=== PATIENT | male | born 1985 | race African-American/Black ===

== ENCOUNTER 2016-12-17 15:21 | Emergency (ER) | payer MEDICAID ==
[2016-12-17] MEDS ORDERED: CLINDAMYCIN 150 MG CAPSULE PO STA (16:31)
[2016-12-17] MEDS ORDERED: HYDROcod/ACETAM 5/325 MG TABLET PO STA (16:31)
[2016-12-17] MEDS ORDERED: HYDROcod/ACETAM 5/325 MG TABLET ONE (16:36)
[2016-12-17] MEDS ORDERED: CLINDAMYCIN 150 MG CAPSULE PO ONE (16:36)
== END 2016-12-17 16:49 | disposition home or self-care (01) ==
DX: K04.7 Periapical abscess without sinus (principal); F17.200 Nicotine dependence, unspecified, uncomplicated
CPT/HCPCS: 99283; A9270

== ENCOUNTER 2017-07-24 13:11 | Emergency (ER) | payer MEDICAID ==
[2017-07-24 13:21] VITALS: BP 142/77
--- NOTE | 2017-07-24 13:45 | ED Physician Documentation ---
PD HPI HEENT - Stated complaint Stated Complaint: TOOTH PX - Chief complaint Chief Complaint: Heent - History obtained from History obtained from: Patient - History of Present Illness Timing - onset: How many weeks ago (several) Timing - details: Waxing and waning Associated symptoms: No: Fever, Facial swelling, Headache Similar symptoms before: No diagnosis - Additional information Additional information: The patient is a 31-year-old male who presents with dental pain in a right upper molar. He has had pain in this tooth intermittently for the past several weeks, but it became worse this morning. He denies associated headache, earache , sore throat, or fever. He has a dental appointment scheduled for 3 weeks from now. Review of Systems Constitutional: denies: Fever Eyes: denies: Irritation Ears: denies: Ear pain Nose: denies: Congestion Throat: reports: Dental pain / toothache. denies: Sore throat Respiratory: denies: Dyspnea, Cough GI: denies: Abdominal Pain, Nausea, Vomiting : denies: Dysuria Skin: denies: Rash Musculoskeletal: denies: Neck pain Neurologic: denies: Headache PD PAST MEDICAL HISTORY - Past Medical History Past Medical History: No Cardiovascular: None Respiratory: None Neuro: None Endocrine/Autoimmune: None GI: None : None HEENT: Other Psych: None Musculoskeletal: None Derm: None - Past Surgical History Past Surgical History: Yes General: Cholecystectomy, Appendectomy Ortho: Other - Present Medications Home Medications: Ambulatory Orders Medication Instructions Recorded Confirmed HYDROcod/ACETAM 5/325 [[place] 5/325] 1 - 2 ea PO Q6H PRN #20 tablet 07/24/17 Penicillin V Potassium 500 mg PO QID #40 tablet 07/24/17 - Allergies Allergies/Adverse Reactions: Allergies Allergy/AdvReac Type Severity Reaction Status Date / Time naproxen Allergy Severe throat Verified 07/24/17 13:21 swelling ibuprofen Allergy Edema Verified 07/24/17 13:21 morphine AdvReac Nausea Verified 07/24/17 13:21 - Social History Does the pt smoke?: Yes Smoking Status: Current every day smoker Does the pt drink ETOH?: No Does the pt have substance abuse?: Yes Substance Use and Type: Marijuana - Immunizations Immunizations are current?: Yes - POLST Patient has POLST: No PD ED PE NORMAL - Vitals Vital signs reviewed: Yes (hypertensive) - General General: Alert and oriented X 3, Well developed/nourished - HEENT HEENT: Atraumatic, PERRL, EOMI, Ears normal, Pharynx benign, Other (There is tenderness to palpation of a right upper molar, third from the rear. There is no gingival swelling or erythema, and no facial swelling detected. Oropharynx is nonerythematous.) - Neck Neck: Supple, no meningeal sign, No adenopathy - Cardiac Cardiac: RRR - Respiratory Respiratory: No respiratory distress, Clear bilaterally - Abdomen Abdomen: Soft, Non tender - Derm Derm: No rash - Neuro Neuro: Alert and oriented X 3, No motor deficit, Normal speech Results - Vitals Vitals: Oxygen O2 Source Room air PD MEDICAL DECISION MAKING - ED course Complexity details: considered differential, d/w patient ED course: The patient's presentation is significant for dental abscess. There is no clinical evidence to suggest peritonsillar abscess. He is being discharged with prescriptions for penicillin and for Vicodin, 20 tablets. I discussed with him outpatient treatment and follow-up with a dentist, as well as potentially worrisome signs or symptoms that should prompt reevaluation in the emergency department. Departure - Departure Disposition: 01 Home, Self Care Clinical Impression: Dental abscess Condition: Stable Instructions: ED Abscess Dental Prescriptions: HYDROcod/ACETAM 5/325 [[place] 5/325] 1 - 2 ea PO Q6H PRN #20 tablet PRN Reason: Pain Penicillin V Potassium 500 mg PO QID #40 tablet Comments: Take penicillin 4 times daily as prescribed. You can use Vicodin as prescribed if needed for pain. Follow up with dentist as you have scheduled. Return to the emergency department if you develop increasing pain despite the pain medication, or increasing facial swelling, or otherwise worsening symptoms. Discharge Date/Time: 07/24/17 13:53
== END 2017-07-24 13:53 | disposition home or self-care (01) ==
LOC: ED 13:11
DX: K04.7 Periapical abscess without sinus (principal); F17.200 Nicotine dependence, unspecified, uncomplicated
CPT/HCPCS: 99283

== ENCOUNTER 2017-07-28 10:32 | Emergency (ER) | payer MEDICAID ==
--- NOTE | 2017-07-28 13:02 | ED Physician Documentation ---
PD HPI HEENT - Stated complaint Stated Complaint: TOOTH PX - Chief complaint Chief Complaint: Heent - History obtained from History obtained from: Patient - History of Present Illness Timing - onset: How many weeks ago (08/26) Timing - duration: Weeks Timing - details: Gradual onset, Still present Location: Tooth (right upper) Associated symptoms: Facial swelling. No: Fever, Congestion, Rhinorrhea Similar symptoms before: Has not had sx before Recently seen: Emergency Dept (last week and Rx PCN and hydrocodone, without resolution and now worse.). No: Clinic (unable to get dental appt, first one is in Sep per patient.) Review of Systems Constitutional: denies: Fever, Chills Nose: denies: Rhinorrhea / runny nose, Congestion Throat: reports: Dental pain / toothache. denies: Sore throat Respiratory: denies: Dyspnea, Cough PD PAST MEDICAL HISTORY - Past Medical History Cardiovascular: None Respiratory: None Neuro: None Endocrine/Autoimmune: None GI: None : None HEENT: Other Psych: None Musculoskeletal: None Derm: None - Past Surgical History Past Surgical History: Yes General: Cholecystectomy, Appendectomy Ortho: Other - Present Medications Home Medications: Ambulatory Orders Medication Instructions Recorded Confirmed HYDROcod/ACETAM 5/325 [[place] 5/325] 1 - 2 ea PO Q6H PRN #20 tablet 07/24/17 Penicillin V Potassium 500 mg PO QID #40 tablet 07/24/17 Clindamycin HCl [Cleocin HCl] 300 mg PO TID #15 capsule 07/28/17 Dexamethasone [Decadron] 4 mg PO DAILY #5 tablet 07/28/17 Oxycodone HCl/Acetaminophen 1 each PO Q6H PRN #20 tablet 07/28/17 [Percocet 5-325 mg Tablet] - Allergies Allergies/Adverse Reactions: Allergies Allergy/AdvReac Type Severity Reaction Status Date / Time naproxen Allergy Severe throat Verified 07/24/17 13:21 swelling ibuprofen Allergy Edema Verified 07/24/17 13:21 morphine AdvReac Nausea Verified 07/24/17 13:21 - Social History Does the pt smoke?: Yes Smoking Status: Current every day smoker Does the pt drink ETOH?: No Does the pt have substance abuse?: Yes - Immunizations Immunizations are current?: Yes - POLST Patient has POLST: No PD ED PE NORMAL - Vitals Vital signs reviewed: Yes - General General: Alert and oriented X 3, No acute distress, Well developed/nourished - HEENT HEENT: Ears normal, Moist mucous membranes, Pharynx benign. No: Dentition benign (right upper molar with partial missing tooth, some swelling of gum and soft tissue face without notable abscess. ) - Neck Neck: Supple, no meningeal sign, No adenopathy - Cardiac Cardiac: RRR - Respiratory Respiratory: Clear bilaterally Results - Vitals Vitals: Oxygen O2 Source Room air PD MEDICAL DECISION MAKING - ED course Complexity details: considered differential, d/w patient Departure - Departure Disposition: Home, Self Care Clinical Impression: Pain, dental Condition: Stable Record reviewed to determine appropriate education?: Yes Instructions: ED Tooth Pain Prescriptions: Clindamycin HCl [Cleocin HCl] 300 mg PO TID #15 capsule Dexamethasone [Decadron] 4 mg PO DAILY #5 tablet Oxycodone HCl/Acetaminophen [Percocet 5-325 mg Tablet] 1 each PO Q6H PRN #20 tablet PRN Reason: Pain Comments: Drink lots of fluids. He can use topical numbing medicine around the tooth such as oil of clove or Orajel (benzocaine). Use dexamethasone anti- inflammatory daily for 5 days. Clindamycin as directed antibiotic for 5 days as well for concern of inflammation and infection. Add Tylenol or Percocet if needed for pain. Hopefully this will diminish the symptoms on enough to be able to then get to your appointment with the dentist in 3 weeks more comfortably. Discharge Date/Time: 07/28/17 13:39
[2017-07-28] MEDS ORDERED: oxyCOD/ACETAMIN 5 MG/325 MG TABLET PO STA (13:22)
[2017-07-28] MEDS ORDERED: DEXAMETHASONE 10 MG/ML VIAL PO STA (13:22)
[2017-07-28] MEDS ORDERED: CLINDAMYCIN 150 MG CAPSULE PO STA (13:22)
[2017-07-28] MEDS ORDERED: oxyCOD/ACETAMIN 5 MG/325 MG TABLET PO ONE (13:34)
[2017-07-28] MEDS ORDERED: CLINDAMYCIN 150 MG CAPSULE PO ONE (13:34)
[2017-07-28] MEDS ORDERED: DEXAMETHASONE 10 MG/ML VIAL ONE (13:34)
[2017-07-28 13:40] VITALS: BP 144/73
== END 2017-07-28 13:39 | disposition home or self-care (01) ==
LOC: ED 10:32
DX: K08.89 Other specified disorders of teeth and supporting structures (principal); F17.200 Nicotine dependence, unspecified, uncomplicated
CPT/HCPCS: 99283; A9270

== ENCOUNTER 2017-10-09 12:22 | Emergency (ER) | payer MEDICAID ==
--- NOTE | 2017-10-09 14:27 | ED Physician Documentation ---
PD HPI SKIN - Stated complaint Stated Complaint: BUMP ON BUTTOCKS - Chief complaint Chief Complaint: General - History obtained from History obtained from: Patient - History of Present Illness Timing - onset: How many days ago (few) Timing - duration: Days Timing - details: Gradual onset, Still present (he has had similar in the same spot that would increase and pop open and drain pus, then get better, but recur a month or so later. This one has not opened and continues to get bigger and more painful.) Location: Other (rigt inguinal area) Quality / character: Painful, Discolored (red), Swelling. No: Draining Associated symptoms: No: Fever Similar symptoms before: No diagnosis Review of Systems Constitutional: denies: Fever, Chills : denies: Dysuria, Frequency PD PAST MEDICAL HISTORY - Past Medical History Cardiovascular: None Respiratory: None Neuro: None Endocrine/Autoimmune: None GI: None : None HEENT: Other Psych: None Musculoskeletal: None Derm: None - Past Surgical History Past Surgical History: Yes General: Cholecystectomy, Appendectomy Ortho: Other - Present Medications Home Medications: Ambulatory Orders Medication Instructions Recorded Confirmed HYDROcod/ACETAM 5/325 [[place] 5/325] 1 - 2 ea PO Q6H PRN #20 tablet 07/24/17 Penicillin V Potassium 500 mg PO QID #40 tablet 07/24/17 Clindamycin HCl [Cleocin HCl] 300 mg PO TID #15 capsule 07/28/17 Dexamethasone [Decadron] 4 mg PO DAILY #5 tablet 07/28/17 Oxycodone HCl/Acetaminophen 1 each PO Q6H PRN #20 tablet 07/28/17 [Percocet 5-325 mg Tablet] Chlorhexidine Gluconate [Hibiclens] 10 ml TP DAILY #473 ml 10/09/17 HYDROcod/ACETAM 5/325 [[place] 5/325] 1 tab PO Q6H PRN #15 tablet 10/09/17 Sulfamethox/Trimeth 800/160 1 each PO BID #14 tablet 10/09/17 [Bactrim Ds 800/160] - Allergies Allergies/Adverse Reactions: Allergies Allergy/AdvReac Type Severity Reaction Status Date / Time naproxen Allergy Severe throat Verified 07/24/17 13:21 swelling ibuprofen Allergy Edema Verified 07/24/17 13:21 morphine AdvReac Nausea Verified 07/24/17 13:21 - Social History Does the pt smoke?: Yes Smoking Status: Current every day smoker Does the pt drink ETOH?: No Does the pt have substance abuse?: Yes - Immunizations Immunizations are current?: Yes - POLST Patient has POLST: No PD ED PE NORMAL - Vitals Vital signs reviewed: Yes - General General: Alert and oriented X 3, Well developed/nourished, Other (in pain with palpation of the area. ) - Neck Neck: Supple, no meningeal sign, No adenopathy - Cardiac Cardiac: RRR, No murmur - Respiratory Respiratory: Clear bilaterally - Derm Derm: Normal color, Warm and dry, Other (right inguinal area with fluctuance, tenderness and redness c/w abscess. ) Results - Vitals Vitals: Oxygen O2 Source Room air - Labs Labs: Microbiology 10/09/17 15:30 Wound Culture - Final Abscess NORMAL Skin Ella present in culture Procedures - Abscess I&D (location) right inguinal area Preparation: Confirmed with ultrasound, Lidocaine 1%, Marcaine 0.5%, With epi Incision: Incised with scalpel, Purulent drainage (about half a cup), Irrigated , Culture obtained. No: Packed Other: Pt tolerated well, Dressing applied, Antibiotic prescribed PD MEDICAL DECISION MAKING - ED course Complexity details: considered differential (recurrent abscess in same location per pateint, now needing I&D. Once cleared, he could see surgery and have the cyst/abcess sac removed), d/w patient Departure - Departure Disposition: 01 Home, Self Care Clinical Impression: Abscess Condition: Stable Record reviewed to determine appropriate education?: Yes Instructions: ED Abscess IandD Follow-Up: HENRI FIELDS MD [Provider Admit Priv/Credential] - Prescriptions: Chlorhexidine Gluconate [Hibiclens] 10 ml TP DAILY #473 ml HYDROcod/ACETAM 5/325 [[place] 5/325] 1 tab PO Q6H PRN #15 tablet PRN Reason: Pain Sulfamethox/Trimeth 800/160 [Bactrim Ds 800/160] 1 each PO BID #14 tablet Comments: Drink lots of fluids. Warm soaks in the bathtub and try to milk out the pus from the whole that is there. Use Hibiclens (chlorhexidine) body wash head to toe with your shower daily for the next week or more. Use Bactrim antibiotic twice daily for the next week. The infection should clear out from that area. Call surgery for a follow-up appointment in about 1 or 2 weeks. Subsequently after the infection is gone, they can do a local surgery to remove the abscess sac since it has been a recurrent problem, there likely is a small sac that remains a keeps getting reinfected. This can be removed when not infected to reduce recurrences. Recheck if not improved well over the next few days. Discharge Date/Time: 10/09/17 16:04
[2017-10-09] MEDS ORDERED: HYDROmorphone 1 MG/ML SYRINGE IM STA (14:44)
[2017-10-09] MEDS ORDERED: KETOROLAC 60 MG/2 ML VIAL IM STA (14:49)
[2017-10-09] MEDS ORDERED: SULFAMETH/TRIMETH DS 800/160 MG TABLET PO STA (14:52)
[2017-10-09] MEDS ORDERED: LIDOCAINE MPF 1%-EPI 1:200000 30 ML VIAL SUBQ STA (14:52)
[2017-10-09 16:02] VITALS: BP 135/80
== END 2017-10-09 16:04 | disposition home or self-care (01) ==
LOC: ED 12:22
DX: L02.31 Cutaneous abscess of buttock (principal); F17.200 Nicotine dependence, unspecified, uncomplicated
CPT/HCPCS: 10060; 87070; 87205; 96372; 99283; A9270; J1170

== ENCOUNTER 2018-05-10 14:18 | Emergency (ER) | payer SELFPAY ==
[2018-05-10 14:25] VITALS: BP 138/82
--- NOTE | 2018-05-10 14:41 | ED Physician Documentation ---
PD HPI LOWER EXT INJURY - Stated complaint Stated Complaint: LT ANKLE PX - Chief complaint Chief Complaint: Ext Problem - History obtained from History obtained from: Patient - History of Present Illness PD HPI LOW EXT INJURY LOCATION: Left Where injury occurred: Street Pain level max: 3 Pain level now: 3 Improved by: Rest, Meds (tylenol) Worsened by: Moving, Palpating Associated symptoms: Swelling - Additional information Additional information: Patient is a 32 year old male who presents to the emergency department with c/o L foot pain. States he had surgery on it either in 2013 or 2014. States the pain began 2 days ago when he stepped out of his car, he felt a "stabbing pain" on the inside of his foot. States hes had to accommodate for this and walk on the outside of the same foot. Has used tylenol for pain. 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 Review of Systems Constitutional: denies: Fever, Chills Nose: denies: Rhinorrhea / runny nose Throat: denies: Sore throat Cardiac: denies: Chest pain / pressure Respiratory: denies: Cough GI: denies: Abdominal Pain, Nausea, Vomiting, Constipation, Diarrhea : denies: Dysuria Skin: denies: Rash, Lesions, Laceration (s) Musculoskeletal: reports: Extremity pain. denies: Neck pain, Back pain, Joint pain Neurologic: denies: Generalized weakness, Headache Psychiatric: denies: Depressed, Anxiety PD PAST MEDICAL HISTORY - Past Medical History Cardiovascular: None Respiratory: None Endocrine/Autoimmune: None GI: None : None HEENT: Other Psych: None Musculoskeletal: None Derm: None - Past Surgical History Past Surgical History: Yes General: Cholecystectomy, Appendectomy Ortho: Other - Present Medications Home Medications: Ambulatory Orders Medication Instructions Recorded Confirmed Tramadol HCl 50 - 100 mg PO Q6H PRN #14 tablet 05/10/18 - Allergies Allergies/Adverse Reactions: Allergies Allergy/AdvReac Type Severity Reaction Status Date / Time naproxen Allergy Severe throat Verified 05/10/18 14:24 swelling ibuprofen Allergy Edema Verified 05/10/18 14:24 morphine AdvReac Nausea Verified 05/10/18 14:24 - Social History Does the pt smoke?: Yes Smoking Status: Current every day smoker Does the pt drink ETOH?: No Does the pt have substance abuse?: Yes - Immunizations Immunizations are current?: Yes - POLST Patient has POLST: No PD ED PE NORMAL - Vitals Vital signs reviewed: Yes - General General: Alert and oriented X 3, No acute distress, Well developed/nourished - HEENT HEENT: Atraumatic, PERRL, Moist mucous membranes - Neck Neck: Supple, no meningeal sign - Derm Derm: Normal color, Warm and dry - Extremities Extremities: No deformity, No edema, No calf tenderness / cord, Other (Moderate TTP of medial aspect of L foot, near arch and near malleolus area.) - Neuro Neuro: Alert and oriented X 3, Normal speech Results - Vitals Vitals: Vital Signs - 24 hr 05/10/18 14:22 Temperature 36.3 C L Heart Rate 68 Respiratory 16 Rate Blood Pressure 138/82 H O2 Saturation 97 Oxygen O2 Source Room air - Rads (name of study) L ankle xray Radiology: Prelim report reviewed, EMP read contemporaneously, See rad report (no acute abnormalities) L foot xray Radiology: Prelim report reviewed, EMP read contemporaneously, See rad report (no acute abnormalities) PD MEDICAL DECISION MAKING - ED course Complexity details: reviewed results, re-evaluated patient, considered differential, d/w patient ED course: Patient is a 32-year-old male who appears to have a left ankle sprain. No acute findings on x-ray. Placed in an air splint for comfort and will utilize crutches as needed. Will prescribe a small amount of pain medication for home and follow-up closely with his doctor for further care. No evidence of septic joint or gout. Patient counseled regarding signs and symptoms for which I believe and urgent re-evaluation would be necessary. Patient with good understanding of and agreement to plan and is comfortable going home at this time This document was made in part using voice recognition software. While efforts are made to proofread this document, sound alike and grammatical errors may occur. - Sepsis Event Vital Signs: Vital Signs - 24 hr 05/10/18 14:22 Temperature 36.3 C L Heart Rate 68 Respiratory 16 Rate Blood Pressure 138/82 H O2 Saturation 97 Oxygen O2 Source Room air Departure - Departure Disposition: 01 Home, Self Care Clinical Impression: Left ankle sprain Qualifiers: Encounter type: initial encounter Involved ligament of ankle: unspecified ligament Qualified Code(s): S93.402A - Sprain of unspecified ligament of left ankle, initial encounter Condition: Good Record reviewed to determine appropriate education?: Yes Instructions: ED Sprain Ankle Follow-Up: your,doctor in 1 week [Other] Prescriptions: Tramadol HCl 50 - 100 mg PO Q6H PRN #14 tablet PRN Reason: ankle pain Comments: Your x-rays today were normal. You may bear weight as tolerated. Return if you worsen. Do not drink alcohol or drive while on narcotic pain medicine. Note that many narcotic pain relievers also contain tylenol/acetaminophen. Please ensure that your total dose of acetaminophen from all sources does not e xceed 3 grams (3000mg) per day. You may constipated on this medication, take a stool softener such as "Colace" twice a day while you are on it. Also recommend a [id number] laxative such as senna or MiraLAX any day that you do not have a bowel movement. If you received narcotic pain medication in the emergency department, do not drive or operate machinery for the next 24 hours.
--- NOTE | 2018-05-10 15:42 | XRAY Report ---
Reason: L ankle pain, s/p twist Procedure Date: 05/10/2018 Accession Number: [id number] / [id number] Procedure: XR - Ankle 3 View LT CPT Code: FULL RESULT: EXAM: LEFT ANKLE RADIOGRAPHY EXAM DATE: 05/10/2018 03:01 PM. CLINICAL HISTORY: Left ankle pain after twisting injury. COMPARISON: ANKLE 3 VIEW LT 07/09/2015 FOOT 3 VIEW LT 05/10/2018. TECHNIQUE: 3 views. FINDINGS: Bones: Surgical anchor in the navicular. No acute fracture or bone lesion. Joints: Normal alignment. The ankle mortise is symmetric. No tibiotalar joint effusion. Soft Tissues: Normal. No soft tissue swelling. IMPRESSION: No acute bony abnormality. RADIA
--- NOTE | 2018-05-10 15:43 | XRAY Report ---
Reason: L foot pain, s/p twist Procedure Date: 05/10/2018 Accession Number: [id number] / [id number] Procedure: XR - Foot 3 View LT CPT Code: FULL RESULT: EXAM: LEFT FOOT RADIOGRAPHY EXAM DATE: 05/10/2018 03:01 PM. CLINICAL HISTORY: Left foot pain after twisting injury. COMPARISON: FOOT 3 VIEW LT 07/09/2015. TECHNIQUE: 3 views. FINDINGS: Bones: Surgical anchor in the navicular. No acute fracture or bone lesion. Joints: Normal. No subluxations. Soft Tissues: Mild swelling overlying the medial midfoot. IMPRESSION: No acute bony abnormality. RADIA
== END 2018-05-10 15:48 | disposition home or self-care (01) ==
LOC: ED 14:18
DX: S93.402A Sprain of unspecified ligament of left ankle, initial encounter (principal); F17.200 Nicotine dependence, unspecified, uncomplicated
CPT/HCPCS: 99283

== ENCOUNTER 2018-08-21 10:18 | Emergency (ER) | payer MEDICAID ==
[2018-08-21 10:40] VITALS: BP 138/75
--- NOTE | 2018-08-21 11:12 | XRAY Report ---
Reason: pain Procedure Date: 08/21/2018 Accession Number: [id number] / [id number] Procedure: XR - Shoulder 3 View RT CPT Code: FULL RESULT: EXAM: RIGHT SHOULDER RADIOGRAPHY EXAM DATE: 08/21/2018 10:54 AM. CLINICAL HISTORY: Pain. COMPARISON: None. TECHNIQUE: 3 views. FINDINGS: Bones: No acute fracture. Joints: No dislocation or subluxation. No significant degenerative change. Soft tissues: Unremarkable. Visualized portions of the right chest are clear. IMPRESSION: No acute osseous or articular abnormality. RADIA
--- NOTE | 2018-08-21 12:24 | ED Physician Documentation ---
History of Present Illness - Stated complaint Stated Complaint: SHOULDER PX - Chief complaint Chief Complaint: Ext Problem - History obtained from History obtained from: Patient - History of Present Illness Timing: Today Pain level max: 8 Pain level now: 8 - Additonal information Additional information: 32-year-old male states that he slept on the couch last night, woke up in his right shoulder was hurting this morning. Pain with movement. Denies any trauma or recent heavy lifting. Has not taken anything for the pain this morning. States had slight tingling and numbness to the fingers in the right hand, fourth and fifth digits. Now improved. Better with rest, worse with movement Review of Systems Constitutional: denies: Fever, Chills GI: denies: Vomiting Skin: denies: Rash Musculoskeletal: denies: Neck pain, Back pain Neurologic: denies: Headache PD PAST MEDICAL HISTORY - Past Medical History Cardiovascular: None Respiratory: None Endocrine/Autoimmune: None GI: None : None HEENT: Other Psych: None Musculoskeletal: None Derm: None - Past Surgical History Past Surgical History: Yes General: Cholecystectomy, Appendectomy Ortho: Other - Present Medications Home Medications: Ambulatory Orders Medication Instructions Recorded Confirmed Acetaminophen [Tylenol Extra 08/21/18 Strength] Cyclobenzaprine [Flexeril] 10 mg PO TID PRN #20 tablet 08/21/18 traMADol [Ultram] 50 - 100 mg PO Q6H PRN #14 tablet 08/21/18 - Allergies Allergies/Adverse Reactions: Allergies Allergy/AdvReac Type Severity Reaction Status Date / Time naproxen Allergy Severe throat Verified 08/21/18 10:40 swelling ibuprofen Allergy Edema Verified 08/21/18 10:40 morphine AdvReac Nausea Verified 08/21/18 10:40 - Social History Does the pt smoke?: Yes Smoking Status: Current every day smoker Does the pt drink ETOH?: No Does the pt have substance abuse?: Yes - Immunizations Immunizations are current?: Yes - POLST Patient has POLST: No PD ED PE NORMAL - Vitals Vital signs reviewed: Yes - General General: Alert and oriented X 3, No acute distress - HEENT HEENT: Moist mucous membranes - Neck Neck: Supple, no meningeal sign - Respiratory Respiratory: No respiratory distress - Derm Derm: Warm and dry - Extremities Extremities: No deformity, Other (Tenderness to palpation around the right shoulder. Limited range of motion secondary to pain with extension and flexion of the joint. No significant pain with internal and external rotation. Neurovascularly intact. Axillary nerve intact) - Neuro Neuro: Alert and oriented X 3 - Psych Psych: Normal mood, Normal affect Results - Vitals Vitals: Vital Signs - 24 hr 08/21/18 10:34 Temperature 36.3 C L Heart Rate 59 L Respiratory 16 Rate Blood Pressure 138/75 H O2 Saturation 97 Oxygen O2 Source Room air - Rads (name of study) Right shoulder x-ray Radiology: Prelim report reviewed, EMP read contemporaneously, See rad report (No acute abnormality) PD MEDICAL DECISION MAKING - ED course Complexity details: reviewed results, re-evaluated patient, considered different ial, d/w patient ED course: 32-year-old male with a right shoulder strain versus sprain. Will place in a sling for comfort and prescribe pain medications for home. No evidence of dislocation here. Neurovascularly intact. Patient counseled regarding signs and symptoms for which I believe and urgent re-evaluation would be necessary. Patient with good understanding of and agreement to plan and is comfortable going home at this time This document was made in part using voice recognition software. While efforts are made to proofread this document, sound alike and grammatical errors may occur. Departure - Departure Disposition: 01 Home, Self Care Clinical Impression: Right shoulder strain Qualifiers: Encounter type: initial encounter Qualified Code(s): S46.911A - Strain of unspecified muscle, fascia and tendon at shoulder and upper arm level, right arm, initial encounter Condition: Good Instructions: ED Sprain Shoulder Follow-Up: Lady Velarde DNP [Primary Care Provider] - Within 1 week Prescriptions: Cyclobenzaprine [Flexeril] 10 mg PO TID PRN #20 tablet PRN Reason: Spasms traMADol [Ultram] 50 - 100 mg PO Q6H PRN #14 tablet PRN Reason: shoulder pain Comments: You can wear the sling as needed for comfort. Return if you worsen. Follow-up with your doctor for further care. Your x-rays are normal today.
== END 2018-08-21 12:32 | disposition home or self-care (01) ==
LOC: ED 10:18
DX: S46.911A Strain of unspecified muscle, fascia and tendon at shoulder and upper arm level, right arm, initial encounter (principal); F17.200 Nicotine dependence, unspecified, uncomplicated
CPT/HCPCS: 99283

== ENCOUNTER 2019-07-30 17:09 | Emergency (ER) | payer SELFPAY ==
[2019-07-30] MEDS ORDERED: PROPOFOL 200 MG/20 ML VIAL IVP STA (18:36)
[2019-07-30] MEDS ORDERED: BUFFERED LIDOCAINE 10 ML SYRINGE SUBQ STA (18:36)
[2019-07-30] MEDS ORDERED: CLINDAMYCIN 150 MG CAPSULE PO STA (18:37)
[2019-07-30] MEDS ORDERED: oxyCODONE/ACET 5/325 Prepack 4 PO STA (18:37)
--- NOTE | 2019-07-30 18:39 | ED Physician Documentation ---
PD HPI SKIN - Stated complaint Stated Complaint: MALE /FEVER - Chief complaint Chief Complaint: Wound - History obtained from History obtained from: Patient (33-year-old gentleman with a 4 to 5-day history of a painful abscess in the groin. He sounds like he has had a recurrent issue with an abscess, potentially a cyst in the same area. He had shaking chills and a low-grade fever today as well.) Review of Systems Constitutional: reports: Fever, Chills. denies: Myalgias GI: denies: Abdominal Pain, Nausea, Vomiting : denies: Dysuria, Frequency PD PAST MEDICAL HISTORY - Past Medical History Cardiovascular: None Respiratory: None Endocrine/Autoimmune: None GI: None : None HEENT: Other Psych: None Musculoskeletal: None Derm: None - Past Surgical History Past Surgical History: Yes General: Cholecystectomy, Appendectomy Ortho: Other - Present Medications Home Medications: Ambulatory Orders Medication Instructions Recorded Confirmed Acetaminophen [Tylenol Extra 08/21/18 Strength] Cyclobenzaprine [Flexeril] 10 mg PO TID PRN #20 tablet 08/21/18 traMADol [Ultram] 50 - 100 mg PO Q6H PRN #14 tablet 08/21/18 Clindamycin HCl [Clindamycin 300MG 300 mg PO Q6H #28 capsule 07/30/19 CAP] Oxycodone HCl/Acetaminophen 1 - 2 each PO Q6H PRN #14 tablet 07/30/19 [Percocet 5-325 mg Tablet] - Allergies Allergies/Adverse Reactions: Allergies Allergy/AdvReac Type Severity Reaction Status Date / Time naproxen Allergy Severe throat Verified 07/30/19 17:23 swelling ibuprofen Allergy Edema Verified 07/30/19 17:23 morphine AdvReac Nausea Verified 07/30/19 17:23 - Social History Does the pt smoke?: Yes Smoking Status: Current every day smoker Does the pt drink ETOH?: No Does the pt have substance abuse?: Yes Substance Use and Type: Marijuana - Immunizations Immunizations are current?: Yes - POLST Patient has POLST: No PD ED PE NORMAL - Vitals Vital signs reviewed: Yes - General General: Alert and oriented X 3, No acute distress - Abdomen Abdomen: Soft, Non tender - Male Male : Other (Pointed abscess to the right of midline inferior buttock with mild surrounding cellulitis. No evidence of a necrotizing infection.) Results - Vitals Vitals: Vital Signs - 24 hr 07/30/19 07/30/19 07/30/19 17:20 18:47 19:43 Temperature 37.0 C Heart Rate 74 54 L 54 L Respiratory 16 14 13 Rate Blood Pressure 150/82 H 138/83 H 148/73 H O2 Saturation 98 99 99 07/30/19 07/30/19 07/30/19 19:49 19:52 19:59 Temperature Heart Rate 59 L 79 72 Respiratory 14 21 22 Rate Blood Pressure 114/71 135/81 H O2 Saturation 100 98 98 Oxygen O2 Source Nasal cannula Procedures - Abscess I&D (location) groin Preparation: Betadine, Lidocaine 1%, Conscious sedation Incision: Incised with scalpel, Purulent drainage, Loculations broken, Culture obtained Other: Pt tolerated well, Dressing applied, Antibiotic prescribed - Procedural sedation Sedation prep: Informed consent, Time out completed, Last meal (3p), PE performed, AHA 1 - healthy Sedation medications: propofol (160mg in divided doses) Patient status during sedation: Responds to tactile, Vitals remained stable, Maintained airway, Recovered uneventfully Time in sedation (Minutes): 15 Departure - Departure Disposition: 01 Home, Self Care Clinical Impression: Abscess Condition: Good Record reviewed to determine appropriate education?: Yes Instructions: ED Abscess IandD Prescriptions: Clindamycin HCl [Clindamycin 300MG CAP] 300 mg PO Q6H #28 capsule Oxycodone HCl/Acetaminophen [Percocet 5-325 mg Tablet] 1 - 2 each PO Q6H PRN #14 tablet PRN Reason: pain Comments: Return on Friday for wound check and packing removal, also culture review, sooner if worse or if pain is uncontrolled.
[2019-07-30 20:11] VITALS: BP 128/75
== END 2019-07-30 20:44 | disposition home or self-care (01) ==
LOC: ED 17:09
DX: L02.214 Cutaneous abscess of groin (principal); L02.31 Cutaneous abscess of buttock; L03.317 Cellulitis of buttock; F17.200 Nicotine dependence, unspecified, uncomplicated
CPT/HCPCS: 46050; 87070; 87205; 99152; 99283; 99285; A9270; 94770

== ENCOUNTER 2019-08-02 08:38 | Emergency (ER) | payer SELFPAY ==
[2019-08-02 08:50] VITALS: BP 129/82
--- NOTE | 2019-08-02 09:01 | ED Physician Documentation ---
PD HPI WOUND RECHECK - Stated complaint Stated Complaint: WOUND RECHECK - Chief complaint Chief Complaint: Wound - Histroy obtained from History obtained from: Patient - History of Present Illness Location: Other (perineum, left side) Timing - onset: How many days ago (4) Severity Comments: moderate Associated symptoms: Swelling, Drainage, Pain. No: Redness Similar symptoms before: Diagnosis (was seen in the ED and had this I&D'd 2 days ago) Recently seen: Emergency Dept - Treatment prior to arrival Treatment prior to arrival: I&D, clindamycin orally, percocet as needed for pain. - Additional information Additional information: Presents today for a wound recheck Review of Systems Ten Systems: 10 systems reviewed and negative Constitutional: denies: Fever Cardiac: reports: Reviewed and negative Respiratory: reports: Reviewed and negative GI: reports: Reviewed and negative Skin: reports: Other (wound on buttock) Musculoskeletal: reports: Reviewed and negative Neurologic: reports: Reviewed and negative Endocrine: reports: Reviewed and negative Immunocompromised: reports: Reviewed and negative PD PAST MEDICAL HISTORY - Past Medical History Cardiovascular: None Respiratory: None Endocrine/Autoimmune: None GI: None : None HEENT: Other Psych: None Musculoskeletal: None Derm: None - Past Surgical History Past Surgical History: Yes General: Cholecystectomy, Appendectomy Ortho: Other - Present Medications Home Medications: Ambulatory Orders Medication Instructions Recorded Confirmed Acetaminophen [Tylenol Extra 08/21/18 Strength] Cyclobenzaprine [Flexeril] 10 mg PO TID PRN #20 tablet 08/21/18 traMADol [Ultram] 50 - 100 mg PO Q6H PRN #14 tablet 08/21/18 Clindamycin HCl [Clindamycin 300MG 300 mg PO Q6H #28 capsule 07/30/19 CAP] Oxycodone HCl/Acetaminophen 1 - 2 each PO Q6H PRN #14 tablet 07/30/19 [Percocet 5-325 mg Tablet] oxyCODONE [Roxicodone] 5 mg PO Q4-6H #12 tablet 08/02/19 - Allergies Allergies/Adverse Reactions: Allergies Allergy/AdvReac Type Severity Reaction Status Date / Time naproxen Allergy Severe throat Verified 08/02/19 08:50 swelling ibuprofen Allergy Edema Verified 08/02/19 08:50 morphine AdvReac Nausea Verified 08/02/19 08:50 - Social History Does the pt smoke?: Yes Smoking Status: Current every day smoker Does the pt drink ETOH?: No Does the pt have substance abuse?: Yes - Immunizations Immunizations are current?: Yes - POLST Patient has POLST: No PD ED PE NORMAL - Vitals Vital signs reviewed: Yes - General General: Alert and oriented X 3, No acute distress, Well developed/nourished - HEENT HEENT: Atraumatic, Moist mucous membranes - Neck Neck: Supple, no meningeal sign - Cardiac Cardiac: RRR - Abdomen Abdomen: Soft, Non distended - Male Male : Deferred - Rectal Rectal: Deferred - Derm Derm: Warm and dry, Other (R perineum with 2cm incision site with area of mild spontaneous drasinage, no fluctuance, no surrounding redness, swelling or cellulits. area is tender to palpation) - Extremities Extremities: No edema - Neuro Neuro: Alert and oriented X 3 Eye Opening: Spontaneous Motor: Obeys Commands - Psych Psych: Normal mood, Normal affect Results - Vitals Vitals: Vital Signs - 24 hr 08/02/19 08:47 Temperature 36.7 C Heart Rate 57 L Respiratory 16 Rate Blood Pressure 129/82 H O2 Saturation 100 Oxygen O2 Source Room air PD MEDICAL DECISION MAKING - ED course Complexity details: reviewed old records, considered differential, d/w patient ED course: ddx- cellulitis, abscess, healing wound. 33 y/o m with perineal abscess 2 days s/p I&D in the ED and started on clindamycin. Wound is healing. Pt is not systemically ill. This is improving. I feel he is stable for discharge with outpt antibiotics continued and analgesics as needed. Given return precautions if worsening symptoms. Departure - Departure Disposition: 01 Home, Self Care Clinical Impression: Perineal abscess Condition: Stable Record reviewed to determine appropriate education?: Yes Instructions: ED Abscess IandD Follow-Up: your, doctor [Other] - As Needed Prescriptions: oxyCODONE [Roxicodone] 5 mg PO Q4-6H #12 tablet
== END 2019-08-02 09:04 | disposition home or self-care (01) ==
LOC: ED 08:38
DX: L02.215 Cutaneous abscess of perineum (principal); F17.200 Nicotine dependence, unspecified, uncomplicated
CPT/HCPCS: 99282; 99284

== ENCOUNTER 2019-09-02 06:44 | Emergency (ER) | payer SELFPAY ==
[2019-09-02 06:56] VITALS: BP 130/72
[2019-09-02 07:21] LABS: RAPID STREP SCREEN Negative (Negative)
[2019-09-02] MEDS ORDERED: DEXAMETHASONE 10 MG/ML VIAL PO STA (07:29)
[2019-09-02] MEDS ORDERED: CHERRY SYRUP 10 ML UDC PO ONE (07:29)
--- NOTE | 2019-09-02 07:33 | ED Physician Documentation ---
History of Present Illness - Stated complaint Stated Complaint: SORE THROAT - Chief complaint Chief Complaint: Heent - History obtained from History obtained from: Patient - History of Present Illness Timing: How many weeks ago (2.5) Pain level max: 4 Pain level now: 4 - Additonal information Additional information: L sided neck pain x 2.5 weeks. States lymph node swelling. no fevers. some nasal congestion and L ear pain. worse with palpation. better with tylenol. Review of Systems Constitutional: denies: Fever, Chills Respiratory: denies: Cough GI: denies: Vomiting, Diarrhea Skin: denies: Rash Musculoskeletal: denies: Neck pain, Back pain Neurologic: denies: Headache PD PAST MEDICAL HISTORY - Past Medical History Past Medical History: No Cardiovascular: None Respiratory: None Endocrine/Autoimmune: None GI: None : None HEENT: Other Psych: None Musculoskeletal: None Derm: None - Past Surgical History Past Surgical History: Yes General: Cholecystectomy, Appendectomy Ortho: Other HEENT: Other - Present Medications Home Medications: Ambulatory Orders Medication Instructions Recorded Confirmed predniSONE [Deltasone] 10 mg PO [id number] #42 tab 09/02/19 - Allergies Allergies/Adverse Reactions: Allergies Allergy/AdvReac Type Severity Reaction Status Date / Time naproxen Allergy Severe throat Verified 09/02/19 06:53 swelling ibuprofen Allergy Edema Verified 09/02/19 06:53 morphine AdvReac Nausea Verified 09/02/19 06:53 - Social History Does the pt smoke?: Yes Smoking Status: Current every day smoker Does the pt drink ETOH?: No Does the pt have substance abuse?: Yes - Immunizations Immunizations are current?: Yes - POLST Patient has POLST: No PD ED PE NORMAL - Vitals Vital signs reviewed: Yes - General General: Alert and oriented X 3, No acute distress - HEENT HEENT: PERRL, Ears normal (no mastoid tenderness. ), Moist mucous membranes, Pharynx benign, Other (L sided neck - anterior cervical LAD, <1cm, mobile nodes. mildly tender. ) - Neck Neck: Supple, no meningeal sign - Cardiac Cardiac: RRR - Respiratory Respiratory: No respiratory distress, Clear bilaterally - Derm Derm: Warm and dry - Neuro Neuro: Alert and oriented X 3 - Psych Psych: Normal mood, Normal affect Results - Vitals Vitals: Vital Signs - 24 hr 09/02/19 06:50 Temperature 37.0 C Heart Rate 66 Respiratory 16 Rate Blood Pressure 130/72 O2 Saturation 97 Oxygen O2 Source Room air - Labs Labs: Laboratory Tests 09/02/19 06:56 Group A Strep Rapid Negative PD MEDICAL DECISION MAKING - ED course Complexity details: considered differential, d/w patient (Patient with what appears to be a reactive lymphadenitis. We will have him follow-up with his doctor for further care. If this does not improve as expected, he should have a further work-up performed to exclude things such as lymphoma. Patient counseled regarding signs and symptoms for which I believe and urgent re- evaluation would be necessary. Patient with good understanding of and agreement to plan and is comfortable going home at this time) Departure - Departure Disposition: 01 Home, Self Care Clinical Impression: Lymphadenitis Condition: Good Instructions: ED Cervical Adenitis No Abx Tx Follow-Up: your,doctor in 1 week [Other] Prescriptions: predniSONE [Deltasone] 10 mg PO [id number] #42 tab Comments: Return if you worsen. Follow up with your doctor for further care. Drink plenty of fluids.
== END 2019-09-02 07:49 | disposition home or self-care (01) ==
LOC: ED 06:44
DX: I88.9 Nonspecific lymphadenitis, unspecified (principal); F17.200 Nicotine dependence, unspecified, uncomplicated
CPT/HCPCS: 87070; 87430; 99283; 99284; A9270

== ENCOUNTER 2019-11-24 02:23 | Emergency (ER) | payer SELFPAY ==
[2019-11-24 02:29] VITALS: BP 125/69
--- NOTE | 2019-11-24 02:34 | ED Physician Documentation ---
PD HPI LOWER EXT INJURY - Stated complaint Stated Complaint: TOE PX/SWELLING - Chief complaint Chief Complaint: Trauma Ext - History obtained from History obtained from: Patient - History of Present Illness PD HPI LOW EXT INJURY LOCATION: Left, Foot Type of injury: Blunt / blow Where injury occurred: Home Timing - onset: Yesterday Timing - details: Abrupt onset Pain level now: 6 Improved by: Rest Worsened by: Moving, Palpating Similar symptoms before: Has not had sx before Recently seen: Not recently seen - Additional information Additional information: c/o left foot pain, lateral aspect, forefoot. sudden onset yesterday when he was playing with his dog outside in bushes near a building, his foot struck a bolt protruding from the building wall that was obscured by the bushes. Review of Systems Musculoskeletal: reports: Extremity pain, Pain with weight bearing Neurologic: denies: Focal weakness, Numbness PD PAST MEDICAL HISTORY - Past Medical History Cardiovascular: None Respiratory: None Endocrine/Autoimmune: None GI: None : None HEENT: Other Psych: None Musculoskeletal: None Derm: None - Past Surgical History Past Surgical History: Yes General: Cholecystectomy, Appendectomy Ortho: Other HEENT: Other - Present Medications Home Medications: Ambulatory Orders Medication Instructions Recorded Confirmed traMADol [Ultram] 50 - 100 mg PO Q4-6H PRN #20 tablet 11/24/19 - Allergies Allergies/Adverse Reactions: Allergies Allergy/AdvReac Type Severity Reaction Status Date / Time naproxen Allergy Severe throat Verified 11/24/19 02:29 swelling ibuprofen Allergy Edema Verified 11/24/19 02:29 morphine AdvReac Nausea Verified 11/24/19 02:29 - Social History Does the pt smoke?: Yes Smoking Status: Current every day smoker Does the pt drink ETOH?: No Does the pt have substance abuse?: Yes - Immunizations Immunizations are current?: Yes - POLST Patient has POLST: No PD ED PE NORMAL - Vitals Vital signs reviewed: Yes - General General: Alert and oriented X 3, No acute distress, Well developed/nourished - Derm Derm: Normal color, Warm and dry - Extremities Extremities: No deformity, No edema - Neuro Neuro: No motor deficit, No sensory deficit PD ED PE EXPANDED - Extremities Extremities: Tenderness, Left foot Feet visual: 1 - tenderness Results - Vitals Vitals: Oxygen O2 Source Room air - Rads (name of study) left foot xrays Radiology: Prelim report reviewed, See rad report PD MEDICAL DECISION MAKING - ED course Complexity details: reviewed results, re-evaluated patient, considered differential, d/w patient Departure - Departure Disposition: 01 Home, Self Care Clinical Impression: Contusion of foot, left Condition: Good Instructions: ED Sprain Foot Prescriptions: traMADol [Ultram] 50 - 100 mg PO Q4-6H PRN #20 tablet PRN Reason: Pain Discharge Date/Time: 11/24/19 03:50
--- NOTE | 2019-11-24 03:09 | XRAY Report ---
Reason: injury, tender lateral aspect Procedure Date: 11/24/2019 Accession Number: [id number] / [id number] Procedure: XR - Foot 3 View LT CPT Code: Final Report FULL RESULT: EXAM: LEFT FOOT RADIOGRAPHY EXAM DATE: 11/24/2019 02:58 AM. CLINICAL HISTORY: Injury, tender lateral aspect. COMPARISON: FOOT 3 VIEW LT 05/10/2018 2:50 PM. TECHNIQUE: 3 views. FINDINGS: Bones: A surgical anchor projects over the navicular.. No fractures or bone lesions. Joints: Normal. No subluxations. Soft Tissues: Normal. No soft tissue swelling. IMPRESSION: No acute fracture. RADIA
[2019-11-24] MEDS ORDERED: traMADol 50 MG TABLET PO STA (03:41)
== END 2019-11-24 03:50 | disposition home or self-care (01) ==
LOC: ED 02:23
DX: S90.32XA Contusion of left foot, initial encounter (principal); W22.09XA Striking against other stationary object, initial encounter; Y93.89 Activity, other specified; Y92.009 Unspecified place in unspecified non-institutional (private) residence as the place of occurrence of the external cause; F17.200 Nicotine dependence, unspecified, uncomplicated
CPT/HCPCS: 73630; 99283; A9270

== ENCOUNTER 2020-01-06 13:29 | Emergency (ER) | payer MEDICAID ==
[2020-01-06 13:51] VITALS: BP 167/77
[2020-01-06] MEDS ORDERED: oxyCODONE 5 MG TABLET PO STA (14:51)
--- NOTE | 2020-01-06 14:54 | ED Physician Documentation ---
PD HPI LOWER EXT INJURY - Stated complaint Stated Complaint: L ANKLE INJ - Chief complaint Chief Complaint: Trauma Ext - History obtained from History obtained from: Patient (Fell last night injuring his left ankle, it is quite painful and he cannot walk or bear weight. No other injuries.) Review of Systems Constitutional: reports: Reviewed and negative Cardiac: reports: Reviewed and negative Respiratory: reports: Reviewed and negative PD PAST MEDICAL HISTORY - Past Medical History Cardiovascular: None Respiratory: None Endocrine/Autoimmune: None GI: None : None HEENT: Other Psych: None Musculoskeletal: None Derm: None - Past Surgical History Past Surgical History: Yes General: Cholecystectomy, Appendectomy Ortho: Other HEENT: Other - Present Medications Home Medications: Ambulatory Orders Medication Instructions Recorded Confirmed traMADol [Ultram] 50 - 100 mg PO Q4-6H PRN #20 tablet 11/24/19 oxyCODONE [Roxicodone] 5 mg PO Q4-6H PRN #10 tablet 01/06/20 - Allergies Allergies/Adverse Reactions: Allergies Allergy/AdvReac Type Severity Reaction Status Date / Time naproxen Allergy Severe throat Verified 01/06/20 13:48 swelling ibuprofen Allergy Edema Verified 01/06/20 13:48 morphine AdvReac Nausea Verified 01/06/20 13:48 - Social History Does the pt smoke?: Yes Smoking Status: Current every day smoker Does the pt drink ETOH?: No Does the pt have substance abuse?: Yes Substance Use and Type: Marijuana - Immunizations Immunizations are current?: Yes - POLST Patient has POLST: No PD ED PE NORMAL - Vitals Vital signs reviewed: Yes - General General: Alert and oriented X 3, No acute distress - Abdomen Abdomen: Soft, Non tender - Extremities Extremities: Other (Mildly tender over the lateral malleolus and fifth metatarsal without deformity. No proximal fibular tenderness.) - Neuro Neuro: Alert and oriented X 3, Normal speech Results - Vitals Vitals: Vital Signs - 24 hr 01/06/20 13:48 Temperature 36.5 C Heart Rate 60 Respiratory 14 Rate Blood Pressure 167/77 H O2 Saturation 97 Oxygen O2 Source Room air - Rads (name of study) L ankle XR Radiology: EMP read contemporaneously (STS no frx) PD MEDICAL DECISION MAKING - ED course Complexity details: d/w patient Departure - Departure Disposition: 01 Home, Self Care Clinical Impression: Sprain of left foot Qualifiers: Encounter type: initial encounter Qualified Code(s): S93.602A - Unspecified sprain of left foot, initial encounter Condition: Good Record reviewed to determine appropriate education?: Yes Instructions: ED Boot Aircast Walker, ED Sprain Foot Prescriptions: oxyCODONE [Roxicodone] 5 mg PO Q4-6H PRN #10 tablet PRN Reason: Pain Comments: Recheck with your doctor in a week if not better, return if worse. Do not drink or drive while taking narcotic pain medication. Note that many narcotic pain relievers also contain Tylenol/acetaminophen. Please ensure that your total dose of acetaminophen from all sources does not exceed 3 g (3000 mg) per day. You may get constipated while on this medication. Take a stool softener such as Colace twice a day while you are on it. Also add an [id number] laxative such as senna or MiraLAX on any day that you do not have a bowel movement. If you received a narcotic pain medication or sedative while in the emergency department, do not drive for the next 24 hours.
--- NOTE | 2020-01-06 15:02 | XRAY Report ---
Reason: ankle inj Procedure Date: 01/06/2020 Accession Number: [id number] / [id number] Procedure: XR - Ankle 3 View LT CPT Code: Final Report FULL RESULT: EXAM: LEFT ANKLE RADIOGRAPHY EXAM DATE: 01/06/2020 02:32 PM. CLINICAL HISTORY: Ankle injury status post fall from stairs. COMPARISON: ANKLE 3 VIEW LT 05/10/2018 2:50 PM. TECHNIQUE: 3 views. FINDINGS: Bones: No acute fracture or bone lesion. A soft tissue anchor overlies the medial navicular as before. Joints: Normal. No effusion. No subluxations. The ankle mortise is normally aligned. Soft Tissues: Normal. No soft tissue swelling. IMPRESSION: 1. No fracture, effusion or malalignment. 2. Soft tissue anchor overlying the navicular unchanged. RADIA
== END 2020-01-06 15:17 | disposition home or self-care (01) ==
LOC: ED 13:29
DX: S93.602A Unspecified sprain of left foot, initial encounter (principal); X50.1XXA Overexertion from prolonged static or awkward postures, initial encounter; Y93.89 Activity, other specified; F17.200 Nicotine dependence, unspecified, uncomplicated
CPT/HCPCS: 73610; 99282; 99283; A9270

== ENCOUNTER 2020-01-10 09:09 | Emergency (ER) | payer MEDICAID ==
[2020-01-10 09:17] VITALS: BP 129/76
--- NOTE | 2020-01-10 09:29 | ED Physician Documentation ---
PD HPI LOWER EXT INJURY - Stated complaint Stated Complaint: L FOOT PX - Chief complaint Chief Complaint: Trauma Ext - History obtained from History obtained from: Patient - History of Present Illness PD HPI LOW EXT INJURY LOCATION: Left, Ankle Type of injury: Twist Timing - duration: Days (4) Timing - details: Abrupt onset, Still present (had injury 4 days ago with twisting. Seen in ER and had xray and given boot/crutches for sprain. States still hurting a lot, improved with PO meds Rx, and elevating the ankle.) Worsened by: Moving, Palpating Associated symptoms: Swelling. No: Weakness, Numbness Recently seen: Emergency Dept (4 days ago for same) Review of Systems Constitutional: denies: Fever, Chills Nose: denies: Rhinorrhea / runny nose, Congestion Throat: denies: Sore throat Respiratory: denies: Cough Skin: denies: Abrasion (s), Laceration (s) Musculoskeletal: denies: Neck pain, Back pain PD PAST MEDICAL HISTORY - Past Medical History Cardiovascular: None Respiratory: None Endocrine/Autoimmune: None GI: None : None HEENT: Other Psych: None Musculoskeletal: None Derm: None - Past Surgical History Past Surgical History: Yes General: Cholecystectomy, Appendectomy Ortho: Other HEENT: Other - Present Medications Home Medications: Ambulatory Orders Medication Instructions Recorded Confirmed traMADol [Ultram] 50 - 100 mg PO Q4-6H PRN #20 tablet 11/24/19 oxyCODONE [Roxicodone] 5 mg PO Q4-6H PRN #10 tablet 01/06/20 Diclofenac Sodium 50 mg PO BID #20 tablet. 01/10/20 Hydrocodone/Acetaminophen [[place] 1 each PO Q6H PRN #15 tablet 01/10/20 5-325 Tablet] - Allergies Allergies/Adverse Reactions: Allergies Allergy/AdvReac Type Severity Reaction Status Date / Time naproxen Allergy Severe throat Verified 01/10/20 09:13 swelling ibuprofen Allergy Edema Verified 01/10/20 09:13 morphine AdvReac Nausea Verified 01/10/20 09:13 - Social History Does the pt smoke?: Yes Smoking Status: Current every day smoker Does the pt drink ETOH?: No Does the pt have substance abuse?: Yes - Immunizations Immunizations are current?: Yes - POLST Patient has POLST: No PD ED PE NORMAL - Vitals Vital signs reviewed: Yes - General General: Alert and oriented X 3, No acute distress, Well developed/nourished - Derm Derm: Normal color, Warm and dry - Extremities Extremities: Other (good pulses and color/cap refill in toes, normal sensation, able to move toes okay without pain. Does not seem like compartment pressure issue. Tender at anterior lateral malleolus. No noted laxity with stress testing but hurts so limited tension. ) - Neuro Neuro: No motor deficit, No sensory deficit Results - Vitals Vitals: Vital Signs - 24 hr 01/10/20 09:14 Temperature 37.2 C Heart Rate 54 L Respiratory 16 Rate Blood Pressure 129/76 O2 Saturation 99 Oxygen O2 Source Room air PD MEDICAL DECISION MAKING - ED course Complexity details: reviewed old records, considered differential (seems like sprain without torn ligaments. I think he has low pain tolerance. ), d/w patient Departure - Departure Disposition: 01 Home, Self Care Clinical Impression: Left ankle sprain Qualifiers: Encounter type: subsequent encounter Involved ligament of ankle: unspecified ligament Qualified Code(s): S93.402D - Sprain of unspecified ligament of left ankle, subsequent encounter Condition: Stable Record reviewed to determine appropriate education?: Yes Instructions: ED Sprain Ankle W X Ray Follow-Up: Bib Clemente MD [Provider Admit Priv/Credential] - Prescriptions: Diclofenac Sodium 50 mg PO BID #20 tablet. Hydrocodone/Acetaminophen [[place] 5-325 Tablet] 1 each PO Q6H PRN #15 tablet PRN Reason: Pain Comments: Continue with the ankle brace and crutches. Progress weightbearing as able. It would not be unusual to take 2 to 3 weeks or so for a sprain to heal well. I would anticipate improvement in the pain in this coming week as it often does improve quite a bit after 1 to 1-1/2 weeks. Try a different anti-inflammatory diclofenac low-dose twice daily. To that add Tylenol or hydrocodone for pain. Follow-up with orthopedics if still not improved over the next 1 to 1-1/2 weeks Discharge Date/Time: 01/10/20 09:59
[2020-01-10] MEDS ORDERED: HYDROcod/ACETAM 5/325 MG TABLET PO STA (09:50)
== END 2020-01-10 09:59 | disposition home or self-care (01) ==
LOC: ED 09:09
DX: S93.402A Sprain of unspecified ligament of left ankle, initial encounter (principal); X50.1XXA Overexertion from prolonged static or awkward postures, initial encounter; F17.200 Nicotine dependence, unspecified, uncomplicated
CPT/HCPCS: 99282; 99283; A9270

== ENCOUNTER 2020-04-24 23:00 | Emergency (ER) | payer MEDICAID ==
[2020-04-24 23:14] VITALS: BP 125/83
--- NOTE | 2020-04-24 23:15 | ED Physician Documentation ---
PD HPI UPPER EXT INJURY - Stated complaint Stated Complaint: L WRIST INJURY - Chief complaint Chief Complaint: Trauma Ext - History obtained from History obtained from: Patient - History of Present Illness Location: Left, Wrist Type of injury: Fall (playing basketball, tripped and fell forward onto both outstretched hands. Pain mainly left wrist and base of thumb.) Timing - onset: How many hours ago (2), Today Timing - details: Abrupt onset, Still present Improved by: Rest, Ice Worsened by: Moving, Palpating Associated symptoms: Swelling (mild at distal radius and around thumb base). No: Weakness, Numbness Review of Systems Constitutional: denies: Fever, Chills Nose: denies: Rhinorrhea / runny nose, Congestion Throat: denies: Sore throat Respiratory: denies: Cough Skin: denies: Abrasion (s), Laceration (s) Neurologic: denies: Focal weakness, Numbness, Altered mental status, Head injury PD PAST MEDICAL HISTORY - Past Medical History Past Medical History: No Cardiovascular: None Respiratory: None Endocrine/Autoimmune: None GI: None : None HEENT: Other Psych: None Musculoskeletal: None Derm: None - Past Surgical History Past Surgical History: Yes General: Cholecystectomy, Appendectomy Ortho: Other HEENT: Other - Present Medications Home Medications: Ambulatory Orders Medication Instructions Recorded Confirmed Hydrocodone/Acetaminophen [[place] 1 each PO Q6H PRN #10 tablet 04/25/20 5-325 Tablet] - Allergies Allergies/Adverse Reactions: Allergies Allergy/AdvReac Type Severity Reaction Status Date / Time naproxen Allergy Severe throat Verified 01/10/20 09:13 swelling ibuprofen Allergy Edema Verified 01/10/20 09:13 morphine AdvReac Nausea Verified 01/10/20 09:13 - Social History Does the pt smoke?: Yes Smoking Status: Current every day smoker Does the pt drink ETOH?: No Does the pt have substance abuse?: Yes - Immunizations Immunizations are current?: Yes - POLST Patient has POLST: No PD ED PE NORMAL - Vitals Vital signs reviewed: Yes - General General: Alert and oriented X 3, No acute distress, Well developed/nourished, Other (holding left wrist guardedly as well as thumb motion.) - Derm Derm: Normal color, Warm and dry - Extremities Extremities: Other (The dorsal aspect of the distal radius has some tenderness with mild swelling. There is also tenderness with mild swelling at the snuffbox area at the base of the thumb. The MCP area of the thumb itself has some tenderness but no obvious deformity. The ulnar side of the hand is normal.) - Neuro Neuro: Alert and oriented X 3, No motor deficit, No sensory deficit, Normal speech, Other (good color and cap refill in fingers. Right wrist is minimally tender at radius but not in snuffbox. ) Results - Vitals Vitals: Vital Signs - 24 hr 04/24/20 23:05 Temperature 36.9 C Heart Rate 61 Respiratory 18 Rate Blood Pressure 125/83 H O2 Saturation 96 Oxygen O2 Source Room air - Rads (name of study) left wrist Radiology: Prelim report reviewed (The distal part of the navicular bone shows a nondisplaced fracture.), See rad report Procedures - Splint (location) thumb spica Splint applied by: Physician, Tech Type of splint: Thumb spica Other: Patient tolerated well, No complications, Neurovascular intact PD MEDICAL DECISION MAKING - ED course Complexity details: reviewed results, considered differential, d/w patient Departure - Departure Disposition: 01 Home, Self Care Clinical Impression: Accidental fall Qualifiers: Encounter type: initial encounter Qualified Code(s): W19.XXXA - Unspecified fall, initial encounter Left wrist sprain Qualifiers: Encounter type: initial encounter Qualified Code(s): S63.502A - Unspecified sprain of left wrist, initial encounter Fracture of navicular bone of wrist Qualifiers: Encounter type: initial encounter Scaphoid bone location: distal pole Fracture type: closed Fracture alignment: nondisplaced Laterality: left Qualified Code(s): S62.015A - Nondisplaced fracture of distal pole of navicular [scaphoid] bone of left wrist, initial encounter for closed fracture Condition: Stable Record reviewed to determine appropriate education?: Yes Instructions: ED Fx Wrist Navicular Conf Follow-Up: Nicko Ramos MD [Provider Admit Priv/Credential] - Prescriptions: Hydrocodone/Acetaminophen [[place] 5-325 Tablet] 1 each PO Q6H PRN #10 tablet PRN Reason: Pain Comments: Keep the splint on with minimal use of the left hand due to the fracture at the base of the thumb. Call the orthopedic office tomorrow for follow-up later this week or early next week. They likely will re-x-ray the wrist to ensure its holding position and di scussed treatment options. Most likely will change to a regular cast as well. Tylenol 4 times a day as needed for pains; take hydrocodone if needed for worse pain short term, but it should improve with the splint and as swelling goes down over the initial few days. Rest ice and elevate the wrist often tonight and tomorrow to reduce swelling. Discharge Date/Time: 04/25/20 00:24
[2020-04-24] MEDS ORDERED: HYDROcod/ACETAM 5/325 MG TABLET PO STA (23:50)
--- NOTE | 2020-04-25 08:58 | XRAY Report ---
PROCEDURE: Wrist 4 View LT INDICATIONS: Trauma TECHNIQUE: 4 views of the wrist were acquired. COMPARISON: None FINDINGS: Bones: No fractures or dislocations. No suspicious bony lesions. Scaphoid view: Mentally displaced fracture of the distal pole/tubercle of the scaphoid. Soft tissues: No suspicious soft tissue calcifications. IMPRESSION: Distal scaphoid fracture. Reviewed by: Marjan Rajan MD, PhD on 04/25/2020 8:57 AM PDT Approved by: Marjan Rajan MD, PhD on 04/25/2020 8:57 AM PDT Station ID: [id number]
== END 2020-04-25 00:24 | disposition home or self-care (01) ==
LOC: ED 23:00
DX: S62.015A Nondisplaced fracture of distal pole of navicular [scaphoid] bone of left wrist, initial encounter for closed fracture (principal); S63.502A Unspecified sprain of left wrist, initial encounter; W01.0XXA Fall on same level from slipping, tripping and stumbling without subsequent striking against object, initial encounter; Y93.67 Activity, basketball; F17.200 Nicotine dependence, unspecified, uncomplicated
CPT/HCPCS: 29125; 73110; 99283; A9270

== ENCOUNTER 2020-05-08 07:59 | Outpatient (CLI) | payer MEDICAID ==
--- NOTE | 2020-05-08 15:25 | XRAY Report ---
PROCEDURE: Wrist 4 View LT INDICATIONS: LEFT SCAPHOID FRACTURE TECHNIQUE: 3 views of the wrist were acquired. COMPARISON: 04/24/2020 FINDINGS: Bones: No previously unidentified fractures or dislocations. No suspicious bony lesions. Healing d istal scaphoid articular margin fracture. Scaphoid view: Not obtained but the scaphoid prior and current fracture is well visualized, without evidence of change in mild malalignment at the articular margin fracture distally involving the scaph oid. Soft tissues: No suspicious soft tissue calcifications. IMPRESSION: Healing distal scaphoid articular margin fracture, no additional new fracture is found. Reviewed by: Otto Hercules MD on 05/08/2020 3:23 PM PDT Approved by: Otto Hercules MD on 05/08/2020 3:23 PM PDT Station ID: [id number]
== END 2020-05-08 08:00 | disposition home or self-care (01) ==
LOC: DI.WCP 07:59
PROVIDERS: ATTEND Physician Assistant
DX: S62.012D Displaced fracture of distal pole of navicular [scaphoid] bone of left wrist, subsequent encounter for fracture with routine healing (principal)

== ENCOUNTER 2020-05-25 07:51 | Outpatient (CLI) | payer MEDICAID ==
--- NOTE | 2020-05-25 11:55 | XRAY Report ---
PROCEDURE: Wrist 4 View LT INDICATIONS: Left scaphoid fracture TECHNIQUE: 4 views of the wrist were acquired. COMPARISON: 05/08/2020, 04/24/2020 FINDINGS: Bones: Mildly displaced fracture of the scaphoid pole is redemonstrated. There is developing healing /bridging bony callus across the fracture plane. Soft tissues: No suspicious soft tissue calcifications. IMPRESSION: Some healing/bridging bony callus has developed across the distal pole scaphoid fracture plane, though there is not yet complete union. Reviewed by: Teofilo Perez MD on 05/25/2020 11:53 AM PDT Approved by: Teofilo Perez MD on 05/25/2020 11:53 AM PDT Station ID: [id number]
== END 2020-05-25 07:52 | disposition home or self-care (01) ==
LOC: DI.WCP 07:51
PROVIDERS: ATTEND Physician Assistant
DX: S62.015D Nondisplaced fracture of distal pole of navicular [scaphoid] bone of left wrist, subsequent encounter for fracture with routine healing (principal)

== ENCOUNTER 2020-06-03 16:43 | Emergency (ER) | payer MEDICAID ==
[2020-06-03 16:48] VITALS: BP 147/76
[2020-06-03] MEDS ORDERED: DOXEPIN 10 MG CAPSULE PO STA (16:56)
[2020-06-03] MEDS ORDERED: predniSONE 20 MG TABLET PO STA (16:56)
--- NOTE | 2020-06-03 16:59 | ED Physician Documentation ---
PD HPI SKIN - Stated complaint Stated Complaint: ALLERGIC REACTION - Chief complaint Chief Complaint: Allergic Rx - History obtained from History obtained from: Patient - Additional information Additional information: Itchy hives since yesterday, tried Benadryl without relief. Triggers unknown. Potentially a new soap. No shortness of breath or throat swelling Review of Systems Constitutional: reports: Reviewed and negative Ears: reports: Reviewed and negative Cardiac: reports: Reviewed and negative PD PAST MEDICAL HISTORY - Past Medical History Cardiovascular: None Respiratory: None Endocrine/Autoimmune: None GI: None : None HEENT: Other Psych: None Musculoskeletal: None Derm: None - Past Surgical History Past Surgical History: Yes General: Cholecystectomy, Appendectomy Ortho: Other HEENT: Other - Present Medications Home Medications: Ambulatory Orders Medication Instructions Recorded Confirmed Hydrocodone/Acetaminophen [[place] 1 each PO Q6H PRN #10 tablet 04/25/20 5-325 Tablet] Doxepin [SINEquan] 10 mg PO TID PRN #14 capsule 06/03/20 predniSONE [Deltasone] 60 mg PO DAILY 5 Days #15 tablet 06/03/20 - Allergies Allergies/Adverse Reactions: Allergies Allergy/AdvReac Type Severity Reaction Status Date / Time naproxen Allergy Severe throat Verified 01/10/20 09:13 swelling ibuprofen Allergy Edema Verified 01/10/20 09:13 morphine AdvReac Nausea Verified 01/10/20 09:13 - Social History Does the pt smoke?: Yes Smoking Status: Current every day smoker Does the pt drink ETOH?: No Does the pt have substance abuse?: Yes - Immunizations Immunizations are current?: Yes - POLST Patient has POLST: No PD ED PE NORMAL - Vitals Vital signs reviewed: Yes - General General: Alert and oriented X 3, No acute distress - HEENT HEENT: Pharynx benign - Respiratory Respiratory: Clear bilaterally - Derm Derm: Other (He has urticaria especially on the forearms and upper trunk.) - Neuro Neuro: Alert and oriented X 3, Normal speech Results - Vitals Vitals: Vital Signs - 24 hr 06/03/20 16:46 Temperature 36.3 C L Heart Rate 62 Respiratory 18 Rate Blood Pressure 147/76 H O2 Saturation 98 Oxygen O2 Source Room air Departure - Departure Disposition: Home, Self Care Clinical Impression: Allergic urticaria Condition: Good Record reviewed to determine appropriate education?: Yes Instructions: ED Urticaria Prescriptions: predniSONE [Deltasone] 60 mg PO DAILY 5 Days #15 tablet Doxepin [SINEquan] 10 mg PO TID PRN #14 capsule PRN Reason: Itching Comments: Call your doctor to arrange a follow-up appointment, make the next available appointment. In the interim, return anytime if worse or if new symptoms develop.
== END 2020-06-03 17:04 | disposition home or self-care (01) ==
LOC: ED 16:43
DX: L50.0 Allergic urticaria (principal); F17.200 Nicotine dependence, unspecified, uncomplicated
CPT/HCPCS: 99282; 99284; A9270; J7512

== ENCOUNTER 2020-06-22 13:46 | Outpatient (CLI) | payer MEDICAID ==
--- NOTE | 2020-06-22 13:56 | XRAY Report ---
PROCEDURE: Wrist 4 View LT INDICATIONS: LEFT WRIST SCAPHOID FRACTURE TECHNIQUE: 4 views of the wrist were acquired. COMPARISON: 05/25/2020 and 04/24/2020 FINDINGS: Bones: No acute fractures or dislocations. Continued healing of known fracture of the distal pole o f the scaphoid. Fracture line is less conspicuous. No suspicious bony lesions. Scaphoid view: There is borderline widening of the scapholunate interval measuring approximately 4 mm . Soft tissues: No suspicious soft tissue calcifications. IMPRESSION: 1. Continued healing of distal scaphoid fracture. 2. Borderline widening of the scapholunate interval. Reviewed by: Fer Singh MD on 06/22/2020 1:54 PM PDT Approved by: Fer Singh MD on 06/22/2020 1:54 PM PDT Station ID: [id number]
== END 2020-06-22 23:59 | disposition home or self-care (01) ==
LOC: DI.WCP 13:46
PROVIDERS: ATTEND Physician Assistant
DX: S62.015D Nondisplaced fracture of distal pole of navicular [scaphoid] bone of left wrist, subsequent encounter for fracture with routine healing (principal)

== ENCOUNTER 2021-01-15 | Outpatient (CLI) | payer MEDICAID | END 2021-01-15 23:59 | disposition critical access hospital (66) | DX: R40.4 Transient alteration of awareness (principal) | CPT/HCPCS: A0425; A0427; A0999 ==

== ENCOUNTER 2021-01-15 21:57 | Emergency (ER) | payer MEDICAID ==
--- NOTE | 2021-01-15 22:13 | ED Physician Documentation ---
PD HPI OVERDOSE - Stated complaint Stated Complaint: OD - Chief complaint Chief Complaint: MHE - History obtained from History obtained from: Patient, EMS PD PAST MEDICAL HISTORY - Past Medical History Cardiovascular: None Respiratory: None Endocrine/Autoimmune: None GI: None : None HEENT: Other Psych: None Musculoskeletal: None Derm: None - Past Surgical History Past Surgical History: Yes General: Cholecystectomy, Appendectomy Ortho: Other HEENT: Other - Present Medications Home Medications: Ambulatory Orders Medication Instructions Recorded Confirmed Ondansetron Odt [Zofran] 4 mg TL Q6H PRN #10 tablet 01/16/21 - Allergies Allergies/Adverse Reactions: Allergies Allergy/AdvReac Type Severity Reaction Status Date / Time naproxen Allergy Severe throat Verified 01/10/20 09:13 swelling ibuprofen Allergy Edema Verified 01/10/20 09:13 morphine AdvReac Nausea Verified 01/10/20 09:13 - Social History Does the pt smoke?: Yes Smoking Status: Current every day smoker Does the pt drink ETOH?: No Does the pt have substance abuse?: Yes - Immunizations Immunizations are current?: Yes - POLST Patient has POLST: No Results - Vitals Vitals: Vital Signs - 24 hr 01/15/21 01/15/21 01/15/21 22:06 23:10 23:30 Temperature 36 C L 36.1 C L Heart Rate 77 75 72 Respiratory 16 19 15 Rate Blood Pressure 140/94 H 140/81 H 142/93 H O2 Saturation 87 L 97 98 01/16/21 00:00 Temperature 36.7 C Heart Rate 76 Respiratory 16 Rate Blood Pressure 140/83 H O2 Saturation 96 Oxygen O2 Source Room air Oxygen Flow Rate 2 - Labs Labs: Laboratory Tests 01/15/21 01/15/21 01/15/21 22:22 22:22 22:22 WBC 9.0 RBC 5.42 Hgb 16.1 Hct 45.2 MCV 83.4 MCH 29.7 MCHC 35.6 RDW 13.8 Plt Count 237 MPV 10.4 Neut # (Auto) 6.1 Lymph # (Auto) 1.8 Mcleod # (Auto) 0.8 Eos # (Auto) 0.2 Baso # (Auto) 0.0 Absolute Nucleated RBC 0.00 Nucleated RBC % 0.0 Sodium 135 Potassium 3.2 L Chloride 101 Carbon Dioxide 27 Anion Gap 7.0 BUN 21 H Creatinine 1.3 H Estimated GFR (MDRD) 76 L Glucose 193 H Calcium 8.5 Total Bilirubin 1.2 H AST 21 ALT 20 Alkaline Phosphatase 72 Total Protein 8.1 Albumin 4.5 Globulin 3.6 Albumin/Globulin Ratio 1.3 Lipase 23 TSH 5.71 H Salicylates < 6.0 Urine Opiates Screen Ur Oxycodone Screen Urine Methadone Screen Ur Propoxyphene Screen Acetaminophen < 10 L Ur Barbiturates Screen Ur Tricyclics Screen Ur Phencyclidine Scrn Ur Amphetamine Screen U Methamphetamines Scrn U Benzodiazepines Scrn Urine Cocaine Screen U Cannabinoids Screen Ethyl Alcohol < 5.0 01/15/21 23:25 WBC RBC Hgb Hct MCV MCH MCHC RDW Plt Count MPV Neut # (Auto) Lymph # (Auto) Mcleod # (Auto) Eos # (Auto) Baso # (Auto) Absolute Nucleated RBC Nucleated RBC % Sodium Potassium Chloride Carbon Dioxide Anion Gap BUN Creatinine Estimated GFR (MDRD) Glucose Calcium Total Bilirubin AST ALT Alkaline Phosphatase Total Protein Albumin Globulin Albumin/Globulin Ratio Lipase TSH Salicylates Urine Opiates Screen NEGATIVE Ur Oxycodone Screen NEGATIVE Urine Methadone Screen NEGATIVE Ur Propoxyphene Screen NEGATIVE Acetaminophen Ur Barbiturates Screen NEGATIVE Ur Tricyclics Screen NEGATIVE Ur Phencyclidine Scrn NEGATIVE Ur Amphetamine Screen NEGATIVE U Methamphetamines Scrn NEGATIVE U Benzodiazepines Scrn NEGATIVE Urine Cocaine Screen NEGATIVE U Cannabinoids Screen POSITIVE H Ethyl Alcohol Departure - Departure Disposition: 01 Home, Self Care Clinical Impression: Altered level of consciousness, Hypokalemia Condition: Good Instructions: ED Altered Loc, ED Potassium Deficiency Follow-Up: Sage Bojorquez [Physician No Access] - Comments: You had mild abnormalities in your potassium (low) and kidney tests (high); these abnormalities would not explain any symptoms and thus are incidental findings. however, you should follow up with your primary care provider within 1-2 weeks, as they might want to recheck these results. Discharge Date/Time: 01/16/21 00:09
[2021-01-15 22:29] LABS: BASOPHILS % (AUTO) 0.2 %; EOSINOPHILS # (AUTO) 0.2 10^3/uL (0.0-0.7); EOSINOPHILS % (AUTO) 2.6 %; HCT - HEMATOCRIT 45.2 % (42.0-52.0); HGB - HEMOGLOBIN 16.1 g/dL (14.0-18.0); LYMPHOCYTES # (AUTO) 1.8 10^3/uL (1.5-3.5); LYMPHOCYTES % (AUTO) 20.3 %; MEAN CORPUSCULAR HEMOGLOBIN 29.7 pg (27.0-31.0); MEAN CORPUSCULAR HGB CONC 35.6 g/dL (32.0-36.0); MEAN CORPUSCULAR VOLUME 83.4 fL (80.0-94.0); MEAN PLATELET VOLUME 10.4 fL (7.4-11.4); MONOCYTES # (AUTO) 0.8 10^3/uL (0.0-1.0); NEUTROPHILS # (AUTO) 6.1 10^3/uL (1.5-6.6); NEUTROPHILS % (AUTO) 67.6 %; PLT - PLATELET COUNT 237 10^3/uL (130-450); RED BLOOD COUNT 5.42 10^6/uL (4.70-6.10); RED CELL DISTRIBUTION WIDTH 13.8 % (12.0-15.0)
[2021-01-15] MEDS ORDERED: SODIUM CHLORIDE 0.9% 1,000 ML IV STA (22:38)
[2021-01-15 22:45] LABS: ACETAMINOPHEN < 10 ug/mL (10-30); ALBUMIN 4.5 g/dL (3.2-5.5); ALBUMIN/GLOBULIN RATIO 1.3 (1.0-2.2); ALKALINE PHOSPHATASE 72 IU/L (42-121); ALT ALANINE AMINOTRANSFERASE 20 IU/L (10-60); AST ASPARTATE AMINOTRANSFERASE 21 IU/L (10-42); BILIRUBIN,TOTAL 1.2 mg/dL (0.2-1.0); BUN - BLOOD UREA NITROGEN 21 mg/dL (6-20); CALCIUM 8.5 mg/dL (8.5-10.3); CARBON DIOXIDE - CO2 27 mmol/L (21-32); CHLORIDE 101 mmol/L (101-111); CREATININE 1.3 mg/dL (0.6-1.2); ETOH - ETHANOL < 5.0 mg/dL; GFR - MDRD 76 (>89); GLUCOSE 193 mg/dL (70-100); LIPASE 23 U/L (22-51); POTASSIUM 3.2 mmol/L (3.5-5.0); SALICYLATE < 6.0 mg/dL; SODIUM 135 mmol/L (135-145); TOTAL PROTEIN 8.1 g/dL (6.7-8.2)
[2021-01-15 23:35] LABS: MUDS CUTOFF CONCENTRATIONS CUTOFF CONC BELOW:
[2021-01-15 23:45] LABS: AMPHETAMINE SCREEN,URINE NEGATIVE (NEGATIVE); BARBITURATE SCREEN,UR NEGATIVE (NEGATIVE); BENZODIAZEPINES SCREEN, URINE NEGATIVE (NEGATIVE); COCAINE SCREEN URINE NEGATIVE (NEGATIVE); METHADONE SCREEN, URINE NEGATIVE (NEGATIVE); METHAMPHETAMINES SCREEN, URINE NEGATIVE (NEGATIVE); OPIATE SCREEN, URINE NEGATIVE (NEGATIVE); OXYCODONE SCREEN, URINE NEGATIVE (NEGATIVE); PROPOXYPHENE SCREEN, URINE NEGATIVE (NEGATIVE); THC CANNABINOID SCREEN, URINE POSITIVE (NEGATIVE); TRICYCLIC ANTIDEPRESSANT,URINE NEGATIVE (NEGATIVE)
[2021-01-15] MEDS ORDERED: POTASSIUM CHLORIDE 20 MEQ TABLET PO STA (23:54)
[2021-01-16 00:09] VITALS: BP 140/83
--- NOTE | 2021-01-16 07:05 | ED Physician Documentation ---
PD HPI ALTERED MENTAL STATUS - Stated complaint Stated Complaint: AMS - Chief complaint Chief Complaint: MHE - History obtained from History obtained from: Patient, EMS - History of Present Illness Timing - onset: Today (ton) Timing - details: Abrupt onset Quality / character: Unresponsive Associated symptoms: Other. No: Fever, Headache, Stiff neck, Dyspnea, Cough, NVD, Urinary sx, General weakness, Focal weakness, Seizure activity, Syncope Contributing factors: Substance abuse (h/o substance abuse but patient says he has been clean since last summer). 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 Patient provides the following HPI: he flew back from [place] earlier today. He bought some marijuana at a dispensary today and tonight he went into his backyard to smoke. He does not recall feeling unwell but subsequently awoke on the ground with EMS attending to him. At the time of this HPI, patient is asymptomatic. He readily admits to a h/o substance abuse but says he has been clean of illicit drug use since last summer. EMS says family called 911 when they found patient in backyard unconscious and unresponsive. EMS found patient unconscious, unresponsive, with pinpoint pupils and agonal respirations, no response to vigorous sternal rub. They noted "blue pills" next to the patient on the ground. EMS gave patient 0.4 mg narcan which resulted in normal respirations, and he became awake and responsive with a second dose (0.2mg) of Narcan, arrives to ED awake and alert Review of Systems Eyes: reports: Reviewed and negative Cardiac: reports: Reviewed and negative Respiratory: reports: Reviewed and negative GI: reports: Reviewed and negative Musculoskeletal: reports: Reviewed and negative Neurologic: reports: Unresponsive. denies: Generalized weakness, Focal weakness, Numbness, Headache, Head injury PD PAST MEDICAL HISTORY - Past Medical History Past Medical History: No Cardiovascular: None Respiratory: None Neuro: None Endocrine/Autoimmune: None GI: None : None HEENT: Other Psych: None Musculoskeletal: None Derm: None Other Past Medical History: Excersize induced asthma as a child, resolved. - Past Surgical History Past Surgical History: Yes General: Cholecystectomy, Appendectomy Ortho: Other HEENT: Other - Present Medications Home Medications: Ambulatory Orders Medication Instructions Recorded Confirmed Ondansetron Odt [Zofran] 4 mg TL Q6H PRN #10 tablet 01/16/21 - Allergies Allergies/Adverse Reactions: Allergies Allergy/AdvReac Type Severity Reaction Status Date / Time naproxen Allergy Severe throat Verified 01/10/20 09:13 swelling ibuprofen Allergy Edema Verified 01/10/20 09:13 morphine AdvReac Nausea Verified 01/10/20 09:13 - Social History Does the pt smoke?: Yes Smoking Status: Current every day smoker Does the pt drink ETOH?: No Does the pt have substance abuse?: Yes Substance Use and Type: Marijuana, Prescription Pills - Immunizations Immunizations are current?: Yes - POLST Patient has POLST: No PD ED PE NORMAL - Vitals Vital signs reviewed: Yes - General General: Alert and oriented X 3, No acute distress, Well developed/nourished - HEENT HEENT: Atraumatic, EOMI, Moist mucous membranes - Neck Neck: Supple, no meningeal sign, No bony TTP - Cardiac Cardiac: RRR, No murmur - Respiratory Respiratory: No respiratory distress, Clear bilaterally - Abdomen Abdomen: Soft, Non tender - Extremities Extremities: Normal ROM s pain - Neuro Neuro: Alert and oriented X 3, 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, No motor deficit, No sensory deficit, Normal speech Eye Opening: Spontaneous Motor: Obeys Commands Verbal: Oriented GCS Score: 15 - Psych Psych: Normal mood, Normal affect PD ED PE EXPANDED - HEENT HEENT: Other (pupils are constricted but equal and react to light both direct and consensual response) Results - Vitals Vitals: Vital Signs - 24 hr 01/15/21 01/15/21 01/15/21 22:06 23:10 23:30 Temperature 36 C L 36.1 C L Heart Rate 77 75 72 Respiratory 16 19 15 Rate Blood Pressure 140/94 H 140/81 H 142/93 H O2 Saturation 87 L 97 98 01/16/21 00:00 Temperature 36.7 C Heart Rate 76 Respiratory 16 Rate Blood Pressure 140/83 H O2 Saturation 96 Oxygen O2 Source Room air Oxygen Flow Rate 2 - Labs Labs: Laboratory Tests 01/15/21 01/15/21 01/15/21 22:22 22:22 22:22 WBC 9.0 RBC 5.42 Hgb 16.1 Hct 45.2 MCV 83.4 MCH 29.7 MCHC 35.6 RDW 13.8 Plt Count 237 MPV 10.4 Neut # (Auto) 6.1 Lymph # (Auto) 1.8 [place] # (Auto) 0.8 Eos # (Auto) 0.2 Baso # (Auto) 0.0 Absolute Nucleated RBC 0.00 Nucleated RBC % 0.0 Sodium 135 Potassium 3.2 L Chloride 101 Carbon Dioxide 27 Anion Gap 7.0 BUN 21 H Creatinine 1.3 H Estimated GFR (MDRD) 76 L Glucose 193 H Calcium 8.5 Total Bilirubin 1.2 H AST 21 ALT 20 Alkaline Phosphatase 72 Total Protein 8.1 Albumin 4.5 Globulin 3.6 Albumin/Globulin Ratio 1.3 Lipase 23 TSH 5.71 H Salicylates < 6.0 Urine Opiates Screen Ur Oxycodone Screen Urine Methadone Screen Ur Propoxyphene Screen Acetaminophen < 10 L Ur Barbiturates Screen Ur Tricyclics Screen Ur Phencyclidine Scrn Ur Amphetamine Screen U Methamphetamines Scrn U Benzodiazepines Scrn Urine Cocaine Screen U Cannabinoids Screen Ethyl Alcohol < 5.0 01/15/21 23:25 WBC RBC Hgb Hct MCV MCH MCHC RDW Plt Count MPV Neut # (Auto) Lymph # (Auto) [place] # (Auto) Eos # (Auto) Baso # (Auto) Absolute Nucleated RBC Nucleated RBC % Sodium Potassium Chloride Carbon Dioxide Anion Gap BUN Creatinine Estimated GFR (MDRD) Glucose Calcium Total Bilirubin AST ALT Alkaline Phosphatase Total Protein Albumin Globulin Albumin/Globulin Ratio Lipase TSH Salicylates Urine Opiates Screen NEGATIVE Ur Oxycodone Screen NEGATIVE Urine Methadone Screen NEGATIVE Ur Propoxyphene Screen NEGATIVE Acetaminophen Ur Barbiturates Screen NEGATIVE Ur Tricyclics Screen NEGATIVE Ur Phencyclidine Scrn NEGATIVE Ur Amphetamine Screen NEGATIVE U Methamphetamines Scrn NEGATIVE U Benzodiazepines Scrn NEGATIVE Urine Cocaine Screen NEGATIVE U Cannabinoids Screen POSITIVE H Ethyl Alcohol PD MEDICAL DECISION MAKING - ED course Complexity details: reviewed old records, reviewed results, re-evaluated patient, considered differential, d/w patient ED course: abnormalities on w/u are noncontributory/incidental (mild hypokalemia, mildly elevated bun/creatinine, mild hyperglycemia). UDS is only positive for marijuana. Report from EMS is s/o opioid overdose although patient strongly denies opiate use since last year and UDS is only positive for marijuana. Results reviewed with patient. He is AAOx3 and in NAD at time of disposition, comfortable with d/c home. Departure - Departure Disposition: 01 Home, Self Care Clinical Impression: Altered level of consciousness, Hypokalemia Condition: Good Instructions: ED Altered Loc, ED Potassium Deficiency Follow-Up: Sage Bojorquez [Physician No Access] - Comments: You had mild abnormalities in your potassium (low) and kidney tests (high); these abnormalities would not explain any symptoms and thus are incidental findings. however, you should follow up with your primary care provider within 1-2 weeks, as they might want to recheck these results. Discharge Date/Time: 01/16/21 00:09
== END 2021-01-16 00:09 | disposition home or self-care (01) ==
LOC: ED 21:57
DX: R55 Syncope and collapse (principal); R40.4 Transient alteration of awareness; F12.10 Cannabis abuse, uncomplicated; E87.6 Hypokalemia; R73.9 Hyperglycemia, unspecified; R79.89 Other specified abnormal findings of blood chemistry; F17.200 Nicotine dependence, unspecified, uncomplicated
CPT/HCPCS: 36415; 80053; 80306; 80307; 80320; 80329; 83690; 84443; 85025; 96360; 99284; A9270

== ENCOUNTER 2021-01-16 02:07 | Emergency (ER) | payer MEDICAID ==
--- NOTE | 2021-01-16 02:50 | ED Physician Documentation ---
PD HPI HEADACHE - Stated complaint Stated Complaint: RAMACHANDRAN/VOMITING - Chief complaint Chief Complaint: Abd Pain - History obtained from History obtained from: Patient - History of Present Illness Timing - onset: How many hours ago (1-2) Timing - onset during: Rest Timing - details: Gradual onset Worst headache ever?: No: Worst headache ever? Location: Global Quality: Aching Associated symptoms: Nausea, Vomiting. No: Fever, Stiff neck, Weakness, Numbnes s Improved by: Nothing Worsened by: Other (no exacerbating factors) Contributing factors: No: Anticoagulated Recently seen: Emergency Dept - Additional information Additional information: patient was evaluated a few hours ago in this ED (by me), discharged ap proximately 2 hours prior to this current visit. On his previous visit earlier tonight, he was brought to ED for an episode of unresponsiveness that resolved when EMS administered narcan. Patient's brother was driving patient home when patient had sudden onset nausea and vomiting with onset of generalized headache. He did not have n/v nor RAMACHANDRAN during previous ED stay. No witnessed recent injury, although he did have LOC that led to his earlier visit and was found on the ground by family/EMS with patient having no recollection of how he got to ground. Review of Systems Eyes: reports: Reviewed and negative GI: reports: Nausea, Vomiting. denies: Abdominal Pain Neurologic: reports: Unresponsive (earlier tonight (previous ED visit few hours ago, resolved with narcan)), Headache. denies: Generalized weakness, Focal weakness, Numbness PD PAST MEDICAL HISTORY - Past Medical History Past Medical History: No Cardiovascular: None Respiratory: None Neuro: None Endocrine/Autoimmune: None GI: None : None HEENT: None Psych: None Musculoskeletal: None Derm: None - Past Surgical History Past Surgical History: Yes General: Cholecystectomy, Appendectomy Ortho: Other HEENT: Other - Present Medications Home Medications: Ambulatory Orders Medication Instructions Recorded Confirmed Ondansetron Odt [Zofran] 4 mg TL Q6H PRN #10 tablet 01/16/21 - Allergies Allergies/Adverse Reactions: Allergies Allergy/AdvReac Type Severity Reaction Status Date / Time naproxen Allergy Severe throat Verified 01/10/20 09:13 swelling ibuprofen Allergy Edema Verified 01/10/20 09:13 morphine AdvReac Nausea Verified 01/10/20 09:13 - Social History Does the pt smoke?: Yes Smoking Status: Current every day smoker Does the pt drink ETOH?: No Does the pt have substance abuse?: Yes - Immunizations Immunizations are current?: Yes - POLST Patient has POLST: No PD ED PE NORMAL - Vitals Vital signs reviewed: Yes - General General: Alert and oriented X 3, No acute distress, Well developed/nourished - HEENT HEENT: Atraumatic, PERRL, EOMI - Neck Neck: No bony TTP - Neuro Neuro: Alert and oriented X 3, service observer 2-12 intact, No motor deficit, No sensory deficit, Normal speech Eye Opening: Spontaneous Motor: Obeys Commands Verbal: Oriented GCS Score: 15 - Psych Psych: Normal mood, Normal affect Results - Vitals Vitals: Vital Signs - 24 hr 01/16/21 01/16/21 01/16/21 02:12 03:15 04:29 Temperature 36.4 C L 36.4 C L Heart Rate 54 L 57 L Respiratory 18 14 Rate Blood Pressure 130/79 134/74 H 129/64 O2 Saturation 97 93 Oxygen O2 Source Room air - Rads (name of study) CT head Radiology: Prelim report reviewed, See rad report PD MEDICAL DECISION MAKING - ED course Complexity details: reviewed results, re-evaluated patient, considered differential, d/w patient ED course: given IM toradol and IM phergan in ED and on reevaluation he reports good symptom relief with this. CT head is unremarkable and his neurological exam is normal. Results d/w patient and he is comfortable with d/c, provided rx for zofran Departure - Departure Disposition: 01 Home, Self Care Clinical Impression: Headache Qualifiers: Headache type: unspecified Headache chronicity pattern: acute headache Intractability: not intractable Qualified Code(s): R51.9 - Headache, unspecified Condition: Good Instructions: ED Cephalgia Unspecified Prescriptions: Ondansetron Odt [Zofran] 4 mg TL Q6H PRN #10 tablet PRN Reason: Nausea / Vomiting Discharge Date/Time: 01/16/21 04:34
[2021-01-16] MEDS ORDERED: PROMETHAZINE 25 MG/1 ML VIAL IM STA (03:13)
[2021-01-16] MEDS ORDERED: KETOROLAC 30 MG/ML VIAL IM STA (03:14)
[2021-01-16 04:34] VITALS: BP 129/64
--- NOTE | 2021-01-16 08:17 | CT Report ---
PROCEDURE: HEAD WO INDICATIONS: fall, LOC earlier tonight TECHNIQUE: Noncontrast 4.5 mm thick angled axial sections acquired from the foramen magnum to the vertex. For r adiation dose reduction, the following was used: automated exposure control, adjustment of mA and/or kV according to patient size. COMPARISON: None. FINDINGS: Image quality: Excellent. CSF spaces: Basal cisterns are patent. No extra-axial fluid collections. Ventricles are normal in size and shape. Brain: No midline shift. No intracranial masses or hemorrhage. Fuchs-white matter interface is norm al. Skull and face: Calvarium and visualized facial bones are intact, without suspicious lesions. Sinuses: Visualized sinuses and mastoids are clear. IMPRESSION: No CT evidence of acute intracranial pathology. No discrepancies from preliminary reading. Reviewed by: Alejandro Hurtado MD on 01/16/2021 8:16 AM PDT Approved by: Alejandro Hurtado MD on 01/16/2021 8:16 AM PDT Station ID: [id number]
== END 2021-01-16 04:34 | disposition home or self-care (01) ==
LOC: ED 02:07
DX: R51.9 Headache, unspecified (principal); R11.2 Nausea with vomiting, unspecified; F17.200 Nicotine dependence, unspecified, uncomplicated
CPT/HCPCS: 96372; 99283; 99284

== ENCOUNTER 2021-12-06 19:50 | Emergency (ER) | payer MEDICAID ==
[2021-12-06 20:48] LABS: BASOPHILS % (AUTO) 0.2 %; EOSINOPHILS # (AUTO) 0.3 10^3/uL (0.0-0.7); EOSINOPHILS % (AUTO) 2.1 %; HCT - HEMATOCRIT 37.5 % (42.0-52.0); HGB - HEMOGLOBIN 13.6 g/dL (14.0-18.0); LYMPHOCYTES # (AUTO) 1.6 10^3/uL (1.5-3.5); LYMPHOCYTES % (AUTO) 12.3 %; MEAN CORPUSCULAR HEMOGLOBIN 29.8 pg (27.0-31.0); MEAN CORPUSCULAR HGB CONC 36.3 g/dL (32.0-36.0); MEAN CORPUSCULAR VOLUME 82.1 fL (80.0-94.0); MEAN PLATELET VOLUME 10.1 fL (7.4-11.4); MONOCYTES # (AUTO) 0.8 10^3/uL (0.0-1.0); MONOCYTES % (AUTO) 5.9 %; NEUTROPHILS # (AUTO) 10.4 10^3/uL (1.5-6.6); NEUTROPHILS % (AUTO) 79.2 %; PLT - PLATELET COUNT 300 10^3/uL (130-450); RED BLOOD COUNT 4.57 10^6/uL (4.70-6.10); RED CELL DISTRIBUTION WIDTH 13.9 % (12.0-15.0); WHITE BLOOD COUNT 13.1 x10^3/uL (4.8-10.8)
[2021-12-06 21:02] LABS: ALBUMIN/GLOBULIN RATIO 1.1 (1.0-2.2); BILIRUBIN,TOTAL 0.7 mg/dL (0.2-1.0); CALCIUM 8.9 mg/dL (8.5-10.3); CREATININE 0.8 mg/dL (0.6-1.2); POTASSIUM 3.9 mmol/L (3.5-5.0); TOTAL PROTEIN 7.6 g/dL (6.7-8.2)
--- NOTE | 2021-12-06 21:55 | ED Physician Documentation ---
PD HPI LOWER EXT INJURY - Stated complaint Stated Complaint: BILAT LEG SWELL/PX/HOT TO TOUCH - Chief complaint Chief Complaint: Wound - History obtained from History obtained from: Patient - Additional information Additional information: Patient is a 35-year-old male with previous history and surgery to left foot presenting for evaluation of bilateral lower extremity swelling, Left greater than right since 11 AM yesterday. Patient denies any recent injury or known trauma. His left foot at times bothers him and he does walk with a limp. 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 He has an abrasion to his left sifuentes which has been present for a few weeks. He denies noticing any abnormal drainage from the wound. He noticed swelling yesterday particularly to the left leg. Swelling is limited to Lower extremity below the knees.He denies fever, chills, chest pain, difficulty breathing, abdominal pain, vomiting, dysuria, difficulty urinating.He denies a history of PE or DVT.Patient's last tetanus was 1 to 2 years ago. Review of Systems Ten Systems: 10 systems reviewed and negative Constitutional: denies: Fever Nose: denies: Congestion Cardiac: denies: Chest pain / pressure Respiratory: denies: Dyspnea, Cough GI: denies: Abdominal Pain, Vomiting, Diarrhea : denies: Dysuria Skin: reports: Rash Musculoskeletal: reports: Extremity swelling Neurologic: denies: Syncope, Headache PD PAST MEDICAL HISTORY - Past Medical History Past Medical History: No Cardiovascular: None Respiratory: None Neuro: None Endocrine/Autoimmune: None GI: None : None HEENT: None Psych: None Musculoskeletal: None Derm: None - Past Surgical History Past Surgical History: Yes General: Cholecystectomy, Appendectomy Ortho: Other HEENT: Other - Present Medications Home Medications: Ambulatory Orders Medication Instructions Recorded Confirmed Sulfamethox/Trimeth 800/160 1 tablet PO BID 7 Days #14 tablet 12/06/21 [Bactrim Ds] cephALEXin [Keflex] 500 mg PO Q6H #28 cap 12/06/21 - Allergies Allergies/Adverse Reactions: Allergies Allergy/AdvReac Type Severity Reaction Status Date / Time naproxen Allergy Severe throat Verified 12/06/21 20:17 swelling ibuprofen Allergy Edema Verified 12/06/21 20:17 morphine AdvReac Nausea Verified 12/06/21 20:17 - Social History Does the pt smoke?: Yes Smoking Status: Current every day smoker Does the pt drink ETOH?: No Does the pt have substance abuse?: Yes - Immunizations Immunizations are current?: Yes - POLST Patient has POLST: No PD ED PE NORMAL - General General: Alert and oriented X 3, No acute distress, Well developed/nourished - HEENT HEENT: Atraumatic, Moist mucous membranes - Neck Neck: Supple, no meningeal sign - Cardiac Cardiac: RRR, No murmur, Strong equal pulses - Respiratory Respiratory: No respiratory distress, Clear bilaterally - Abdomen Abdomen: Normal bowel sounds, Soft, Non tender - Derm Derm: Warm and dry - Extremities Extremities: Normal ROM s pain, Other (Mild pitting edema to bilateral lower extremities , Left greater than right, area of erythema and warmth overlying left sifuentes and area of small abrasion, no fluctuance or purulent drainage, no crepitus, compartments of extremities are soft, distal pulses intact, normal strength and sensation distally). No: No edema - Neuro Neuro: Alert and oriented X 3, No motor deficit, No sensory deficit, Normal speech - Psych Psych: Normal mood, Normal affect Results - Vitals Vitals: Vital Signs - 24 hr 12/06/21 12/06/21 12/06/21 20:05 20:12 20:18 Temperature 37.7 C 37.7 C 37.7 C Heart Rate 98 98 98 Respiratory 16 16 16 Rate Blood Pressure 152/73 H 152/73 H 152/73 H O2 Saturation 99 99 99 12/06/21 22:12 Temperature 37.6 C Heart Rate 90 Respiratory 16 Rate Blood Pressure 140/70 H O2 Saturation 100 Oxygen O2 Source Room air - Labs Labs: Laboratory Tests 12/06/21 12/06/21 12/06/21 20:42 20:42 20:42 WBC 13.1 H RBC 4.57 L Hgb 13.6 L Hct 37.5 L MCV 82.1 MCH 29.8 MCHC 36.3 H RDW 13.9 Plt Count 300 MPV 10.1 Neut # (Auto) 10.4 H Lymph # (Auto) 1.6 [place] # (Auto) 0.8 Eos # (Auto) 0.3 Baso # (Auto) 0.0 Absolute Nucleated RBC 0.00 Nucleated RBC % 0.0 Sodium 134 L Potassium 3.9 Chloride 96 L Carbon Dioxide 29 Anion Gap 9.0 BUN 14 Creatinine 0.8 Estimated GFR (MDRD) 133 Glucose 139 H Lactic Acid 1.4 Calcium 8.9 Total Bilirubin 0.7 AST 23 ALT 26 Alkaline Phosphatase 74 B-Natriuretic Peptide Total Protein 7.6 Albumin 4.0 Globulin 3.6 Albumin/Globulin Ratio 1.1 12/06/21 20:42 WBC RBC Hgb Hct MCV MCH MCHC RDW Plt Count MPV Neut # (Auto) Lymph # (Auto) [place] # (Auto) Eos # (Auto) Baso # (Auto) Absolute Nucleated RBC Nucleated RBC % Sodium Potassium Chloride Carbon Dioxide Anion Gap BUN Creatinine Estimated GFR (MDRD) Glucose Lactic Acid Calcium Total Bilirubin AST ALT Alkaline Phosphatase B-Natriuretic Peptide 18 Total Protein Albumin Globulin Albumin/Globulin Ratio PD MEDICAL DECISION MAKING - ED course Complexity details: reviewed results, d/w patient ED course: Patient evaluated for lower extremity swelling, left greater than right. Ultrasound is negative for DVT. Patient has low-grade fever. Mildly elevated white count but otherwise does not appear to be in severe sepsis or septic shock. Patient on exam does appear to have a cellulitic lightest to his left leg. We will initiate treatment with p.o. antibiotics. Patient was given strict return precautions for any worsening symptoms. His tetanus is up-to-date. He does not have any respiratory symptoms or signs of pulmonary edema. Departure - Departure Disposition: 01 Home, Self Care Clinical Impression: Left leg cellulitis, Bilateral leg edema Condition: Stable Instructions: ED Infec Skin Cellulitis, ED Edema Legs Bilateral Follow-Up: Sage Bojorquez [Physician No Access] - Prescriptions: Sulfamethox/Trimeth 800/160 [Bactrim Ds] 1 tablet PO BID 7 Days #14 tablet cephALEXin [Keflex] 500 mg PO Q6H #28 cap Comments: You have been evaluated for swelling to both of your legs.You had an ultrasound performed which did not show any blood clots. I think the swelling is in part related to an infection, particularly on your left leg. I have started you on 2 antibiotics. I have sent the prescriptions to [facility] in [place]. Please take these Antibiotics as prescribed. You should also establish care with a primary care doctor. As you do not have 1, you can follow-up with Dr. Sage Bojorquez MD. If the redness or swelling become worse, you develop fevers, worsening pain or have any other concerns please return to the emergency department. Discharge Date/Time: 12/06/21 22:22
--- NOTE | 2021-12-06 22:01 | Ultrasound Report ---
PROCEDURE: Duplex Ext Veins Bilateral INDICATIONS: MICHELLE SANCHEZ TECHNIQUE: Real-time imaging, as well as color and pulse Doppler interrogation, were performed of the deep veins of both legs from the inguinal ligament to the popliteal fossa. COMPARISON: 08/18/2014 FINDINGS: The deep veins are normally compressible, and free of intraluminal thrombus. Color and pu lse Doppler demonstrate normal phasic intravascular flow. There is normal augmentation response to d istal compression maneuver. IMPRESSION: Negative for deep venous thrombosis of the bilateral lower extremities. Reviewed by: Fer Andre MD on 12/06/2021 9:59 PM PDT Approved by: Fer Andre MD on 12/06/2021 9:59 PM PDT Station ID: [id number]
[2021-12-06] MEDS ORDERED: cephALEXin 250 MG CAPSULE PO STA (22:04)
[2021-12-06] MEDS ORDERED: SULFAMETH/TRIMETH DS 800/160 MG TABLET PO STA (22:04)
[2021-12-06 22:17] VITALS: BP 140/70
== END 2021-12-06 22:22 | disposition home or self-care (01) ==
LOC: ED 19:50
DX: L03.116 Cellulitis of left lower limb (principal); R22.43 Localized swelling, mass and lump, lower limb, bilateral; F17.200 Nicotine dependence, unspecified, uncomplicated
CPT/HCPCS: 36415; 80053; 83605; 83880; 85025; 87040; 93970; 99284; A9270

== ENCOUNTER 2022-01-08 14:42 | Emergency (ER) | payer MEDICAID ==
--- NOTE | 2022-01-08 15:17 | ED Physician Documentation ---
PD HPI SKIN - Stated complaint Stated Complaint: SWOLLEN LEGS - Chief complaint Chief Complaint: Ext Problem - History obtained from History obtained from: Patient - History of Present Illness Timing - onset: How many months ago (1) Location: [facility] PD PAST MEDICAL HISTORY - Past Medical History Cardiovascular: None Respiratory: None Neuro: None Endocrine/Autoimmune: None GI: None : None HEENT: None Psych: None Musculoskeletal: None Derm: None - Past Surgical History Past Surgical History: Yes General: Cholecystectomy, Appendectomy Ortho: Other HEENT: Other - Present Medications Home Medications: Ambulatory Orders Medication Instructions Recorded Confirmed Cetirizine [ZyrTEC] 10 mg PO DAILY 01/08/22 01/08/22 - Allergies Allergies/Adverse Reactions: Allergies Allergy/AdvReac Type Severity Reaction Status Date / Time naproxen Allergy Severe throat Verified 01/08/22 14:47 swelling ibuprofen Allergy Edema Verified 01/08/22 14:47 morphine AdvReac Nausea Verified 01/08/22 14:47 - Social History Does the pt smoke?: Yes Smoking Status: Current every day smoker Does the pt drink ETOH?: No Does the pt have substance abuse?: Yes - Immunizations Immunizations are current?: Yes - POLST Patient has POLST: No Results - Vitals Vitals: Vital Signs - 24 hr 01/08/22 14:47 Temperature 36.9 C Heart Rate 94 Respiratory 16 Rate Blood Pressure 145/82 H O2 Saturation 99 Oxygen O2 Source Room air
--- NOTE | 2022-01-08 15:53 | ED Physician Documentation ---
PD HPI SKIN - Stated complaint Stated Complaint: SWOLLEN LEGS - Chief complaint Chief Complaint: Ext Problem - History obtained from History obtained from: Patient - History of Present Illness Timing - onset: How many months ago (1) Timing - duration: Months (1) Timing - details: Abrupt onset, Still present, Waxing and waning (worse in evening, and will awaken with increased swelling of legs and also now hands the past 1-2 weeks.) Location: RLE, LLE, Other (He is noticed edema and tenderness in both lower extremities from the knees down over the past month. Notes some swelling in his hands in the mornings the last week.) Quality / character: Painful, Swelling. No: Itchy, Discolored (The lower legs were red and warm initially a month ago. This improved but the edema persists.) Associated symptoms: Fever (He states he has had sweats periodically in the last week or 2. He has not checked his temperature.). No: Myalgias, Facial swelling, Dyspnea, Abd pain, N/V/D Similar symptoms before: Has not had sx before Recently seen: Emergency Dept (Seen in the emergency room a month ago with similar symptoms abrupt onset with redness and warmth. Treated for cellulitis with Bactrim and Keflex. Redness improved but edema has persisted with pains.) Review of Systems Constitutional: reports: Fever (episodic sweats) Nose: denies: Rhinorrhea / runny nose, Congestion Throat: denies: Sore throat Respiratory: denies: Cough GI: denies: Abdominal Pain, Nausea, Vomiting, Diarrhea : denies: Dysuria, Discharge Skin: denies: Rash, Lesions Musculoskeletal: reports: Extremity swelling Neurologic: reports: Generalized weakness. denies: Focal weakness, Numbness PD PAST MEDICAL HISTORY - Past Medical History Past Medical History: Yes Cardiovascular: None Respiratory: None Neuro: None Endocrine/Autoimmune: None GI: None : None HEENT: None Psych: None Musculoskeletal: None Derm: None - Past Surgical History Past Surgical History: Yes General: Cholecystectomy, Appendectomy Ortho: Other HEENT: Other - Present Medications Home Medications: Ambulatory Orders Medication Instructions Recorded Confirmed Cetirizine [ZyrTEC] 10 mg PO DAILY 01/08/22 01/08/22 Compression Socks, Large 1 each MC DAILY 14 Days #1 each 01/08/22 [Lifestylecomfort Socks] Meloxicam [Mobic] 7.5 mg PO BID 7 Days #14 tablet 01/08/22 hydroCHLOROthiazide [Hydrodiuril] 25 mg PO DAILY 10 Days #10 tablet 01/08/22 - Allergies Allergies/Adverse Reactions: Allergies Allergy/AdvReac Type Severity Reaction Status Date / Time naproxen Allergy Severe throat Verified 01/08/22 14:47 swelling ibuprofen Allergy Edema Verified 01/08/22 14:47 morphine AdvReac Nausea Verified 01/08/22 14:47 - Social History Does the pt smoke?: Yes Smoking Status: Current every day smoker Does the pt drink ETOH?: No Does the pt have substance abuse?: Yes - Immunizations Immunizations are current?: No Immunizations: Other immun not current - POLST Patient has POLST: No PD ED PE NORMAL - Vitals Vital signs reviewed: Yes - General General: Alert and oriented X 3, No acute distress, Well developed/nourished - HEENT HEENT: Pharynx benign - Neck Neck: Supple, no meningeal sign, No adenopathy - Cardiac Cardiac: RRR, No murmur - Respiratory Respiratory: No respiratory distress, Clear bilaterally - Abdomen Abdomen: Soft, Non tender - Derm Derm: Normal color, Warm and dry, No rash - Extremities Extremities: Other (He has 1+ edema in both lower legs up to the knees. There is tenderness around the ankles on both sides. No warmth nor redness. No skin lesions. Dry skin around the skin between toes. Calves very tender. ) - Neuro Neuro: Alert and oriented X 3, No motor deficit, No sensory deficit, Normal speech Results - Vitals Vitals: Vital Signs - 24 hr 01/08/22 01/08/22 14:47 17:08 Temperature 36.9 C Heart Rate 94 79 Respiratory 16 16 Rate Blood Pressure 145/82 H 133/74 H O2 Saturation 99 100 Oxygen O2 Source Room air - Labs Labs: Laboratory Tests 01/08/22 01/08/22 01/08/22 15:59 16:00 16:00 WBC 6.5 RBC 4.71 Hgb 14.0 Hct 39.1 L MCV 83.0 MCH 29.7 MCHC 35.8 RDW 13.9 Plt Count 287 MPV 9.5 Neut # (Auto) 3.8 Lymph # (Auto) 1.6 [place] # (Auto) 0.5 Eos # (Auto) 0.6 Baso # (Auto) 0.0 Absolute Nucleated RBC 0.00 Nucleated RBC % 0.0 ESR Sodium 138 Potassium 4.0 Chloride 101 Carbon Dioxide 29 Anion Gap 8.0 BUN 12 Creatinine 0.8 Estimated GFR (MDRD) 133 Glucose 107 H Calcium 9.4 Total Bilirubin 0.3 AST 26 ALT 32 Alkaline Phosphatase 70 Total Creatine Kinase 314 H B-Natriuretic Peptide Total Protein 7.3 Albumin 4.1 Globulin 3.2 Albumin/Globulin Ratio 1.3 Lipase 25 TSH Urine Color YELLOW Urine Clarity CLEAR Urine pH 6.0 Ur Specific [place] >=1.030 H Urine Protein NEGATIVE Urine Glucose (UA) NEGATIVE Urine Ketones NEGATIVE Urine Occult Blood NEGATIVE Urine Nitrite NEGATIVE Urine Bilirubin NEGATIVE Urine Urobilinogen 1 (NORMAL) Ur Leukocyte Esterase NEGATIVE Ur Microscopic Review NOT INDICATED Urine Culture Comments NOT INDICATED 01/08/22 01/08/22 01/08/22 16:00 16:00 16:00 WBC RBC Hgb Hct MCV MCH MCHC RDW Plt Count MPV Neut # (Auto) Lymph # (Auto) [place] # (Auto) Eos # (Auto) Baso # (Auto) Absolute Nucleated RBC Nucleated RBC % ESR 8 Sodium Potassium Chloride Carbon Dioxide Anion Gap BUN Creatinine Estimated GFR (MDRD) Glucose Calcium Total Bilirubin AST ALT Alkaline Phosphatase Total Creatine Kinase B-Natriuretic Peptide 10 Total Protein Albumin Globulin Albumin/Globulin Ratio Lipase TSH 0.88 Urine Color Urine Clarity Urine pH Ur Specific [place] Urine Protein Urine Glucose (UA) Urine Ketones Urine Occult Blood Urine Nitrite Urine Bilirubin Urine Urobilinogen Ur Leukocyte Esterase Ur Microscopic Review Urine Culture Comments - Rads (name of study) duplex legs Radiology: Prelim report reviewed (no DVT), See rad report PD MEDICAL DECISION MAKING - ED course Complexity details: reviewed old records (ER visit from a month ago. ), reviewed results, considered differential (consider lymphedema from preceding cellulitis, DVT, CHF, nephrotic syndrome, kidney failure, etc. ), d/w patient Departure - Departure Disposition: Home, Self Care Clinical Impression: Leg edema Condition: Stable Record reviewed to determine appropriate education?: Yes Instructions: ED Edema Legs Bilateral Follow-Up: [facility] [Provider Group] [facility] [Provider Group] Prescriptions: hydroCHLOROthiazide [Hydrodiuril] 25 mg PO DAILY 10 Days #10 tablet Compression Socks, Large [Lifestylecomfort Socks] 1 each MC DAILY 14 Days #1 each Meloxicam [Mobic] 7.5 mg PO BID 7 Days #14 tablet Comments: Your ultrasound is normal without any signs of blood clots. Your blood tests are good without any anemia, kidney function, electrolyte problems. There is no protein in your urine. I am not sure the cause of the swelling in your legs and hands. I would suggest some anti-inflammatory such as meloxicam twice daily for a week. We could also try mild water pill. However I mostly feel this is more mechanical pain with perhaps some lymphatic congestion. Some Kj wraps for the ankles up to the knees or preferably some compressive stockings which she can get at the store to help with the swelling. Elevate and rest your legs periodically through the day. Follow-up with primary care, try to establish with a local provider group. I did give a couple of clinic names up in [place]. Discharge Date/Time: 01/08/22 17:50
[2022-01-08 16:08] LABS: BASOPHILS % (AUTO) 0.2 %; EOSINOPHILS # (AUTO) 0.6 10^3/uL (0.0-0.7); EOSINOPHILS % (AUTO) 9.4 %; HCT - HEMATOCRIT 39.1 % (42.0-52.0); LYMPHOCYTES # (AUTO) 1.6 10^3/uL (1.5-3.5); LYMPHOCYTES % (AUTO) 25.2 %; MEAN CORPUSCULAR HEMOGLOBIN 29.7 pg (27.0-31.0); MEAN CORPUSCULAR HGB CONC 35.8 g/dL (32.0-36.0); MEAN PLATELET VOLUME 9.5 fL (7.4-11.4); MONOCYTES # (AUTO) 0.5 10^3/uL (0.0-1.0); MONOCYTES % (AUTO) 7.1 %; NEUTROPHILS # (AUTO) 3.8 10^3/uL (1.5-6.6); NEUTROPHILS % (AUTO) 57.8 %; PLT - PLATELET COUNT 287 10^3/uL (130-450); RED BLOOD COUNT 4.71 10^6/uL (4.70-6.10); RED CELL DISTRIBUTION WIDTH 13.9 % (12.0-15.0); WHITE BLOOD COUNT 6.5 x10^3/uL (4.8-10.8)
[2022-01-08 16:14] LABS: BILIRUBIN,URINE NEGATIVE (NEGATIVE); GLUCOSE, URINE (UA) NEGATIVE (NEGATIVE); KETONES,URINE (UA) NEGATIVE (NEGATIVE); LEUKOCYTE ESTERASE, URINE NEGATIVE (NEGATIVE); NITRITE,URINE NEGATIVE (NEGATIVE); OCCULT BLOOD,URINE NEGATIVE (NEGATIVE); PROTEIN,URINE NEGATIVE (NEGATIVE); UROBILINOGEN,URINE 1 (NORMAL) E.U./dL (NORMAL)
[2022-01-08 16:17] LABS: CLARITY,URINE CLEAR (CLEAR)
[2022-01-08 16:29] LABS: ALBUMIN 4.1 g/dL (3.2-5.5); ALBUMIN/GLOBULIN RATIO 1.3 (1.0-2.2); BILIRUBIN,TOTAL 0.3 mg/dL (0.2-1.0); CALCIUM 9.4 mg/dL (8.5-10.3); CREATININE 0.8 mg/dL (0.6-1.2); TOTAL PROTEIN 7.3 g/dL (6.7-8.2)
[2022-01-08 17:09] VITALS: BP 133/74
--- NOTE | 2022-01-08 17:16 | Ultrasound Report ---
PROCEDURE: Duplex Ext Veins Bilateral INDICATIONS: Lower extremity edema TECHNIQUE: Real-time imaging, as well as color and pulse Doppler interrogation, were performed of the deep veins of both legs from the inguinal ligament to the popliteal fossa. COMPARISON: Venous duplex 12/06/2021 FINDINGS: The deep veins are normally compressible, and free of intraluminal thrombus. Color and pu lse Doppler demonstrate normal phasic intravascular flow. There is normal augmentation response to d istal compression maneuver. Focus of heterogeneous echogenicity within the left groin measuring 3.1 x 0.7 x 2.5 cm. It is mildly more prominent previously measuring 2.2 x 1.1 cm. IMPRESSION: No deep venous thrombosis. Focus of heterogeneous echogenicity within the left groin suspicious for enlarged lymph node. While t his could be inflammatory in nature, recommend short interval imaging follow-up to document resolutio n and exclude presence of potential underlying more aggressive etiology. Reviewed by: Kerry Green MD on 01/08/2022 5:14 PM PDT Approved by: Kerry Green MD on 01/08/2022 5:14 PM PDT Station ID: [id number]
== END 2022-01-08 17:50 | disposition home or self-care (01) ==
LOC: ED 14:42
DX: R22.43 Localized swelling, mass and lump, lower limb, bilateral (principal); F17.200 Nicotine dependence, unspecified, uncomplicated
CPT/HCPCS: 36415; 80053; 81001; 81003; 82550; 83690; 83880; 84443; 85025; 85651; 87086; 93970; 99284

== ENCOUNTER 2022-06-16 16:21 | Outpatient (CLI) | payer MEDICAID | END 2022-06-16 23:59 | disposition critical access hospital (66) | LOC: EMS 16:21 | DX: R11.10 Vomiting, unspecified (principal); R32 Unspecified urinary incontinence; R15.9 Full incontinence of feces | CPT/HCPCS: A0425; A0429; A0999 ==

== ENCOUNTER 2022-06-16 16:40 | Emergency (ER) | payer MEDICAID ==
[2022-06-16] MEDS ORDERED: PROMETHAZINE 25 MG/1 ML VIAL IM STA (16:44)
[2022-06-16] MEDS ORDERED: BUPRENORPHINE 0.3 MG/ML VIAL IM ONE (16:44)
--- NOTE | 2022-06-16 16:47 | ED Physician Documentation ---
History of Present Illness - Stated complaint Stated Complaint: WITHDRAWAL - History obtained from History obtained from: Patient, EMS - History of Present Illness Timing: Today Pain level max: 10 Pain level now: 10 - Additonal information Additional information: Patient is a 36-year-old male who states that he has been using fentanyl daily for the past several years, smoked a lower dose than usual yesterday and did not have any today. Now is having vomiting and diarrhea. Feels like he has been narcotic withdrawal. EMS brought the patient in but did not provide any medication on route. Patient states that he hurts everywhere. Patient is uncooperative with the history. Review of Systems Unable to obtain: Uncooperative GI: reports: Vomiting, Diarrhea PD PAST MEDICAL HISTORY - Past Medical History Cardiovascular: None Respiratory: None Neuro: None Endocrine/Autoimmune: None GI: None : None HEENT: None Psych: None Musculoskeletal: None Derm: None - Past Surgical History Past Surgical History: Yes General: Cholecystectomy, Appendectomy Ortho: Other HEENT: Other - Present Medications Home Medications: Ambulatory Orders Medication Instructions Recorded Confirmed Cetirizine [ZyrTEC] 10 mg PO DAILY 01/08/22 01/08/22 Compression Socks, Large 1 each MC DAILY 14 Days #1 each 01/08/22 [Lifestylecomfort Socks] Meloxicam [Mobic] 7.5 mg PO BID 7 Days #14 tablet 01/08/22 hydroCHLOROthiazide [Hydrodiuril] 25 mg PO DAILY 10 Days #10 tablet 01/08/22 - Allergies Allergies/Adverse Reactions: Allergies Allergy/AdvReac Type Severity Reaction Status Date / Time naproxen Allergy Severe throat Verified 06/16/22 16:54 swelling ibuprofen Allergy Edema Verified 06/16/22 16:54 morphine AdvReac Nausea Verified 06/16/22 16:54 - Social History Does the pt smoke?: Yes Smoking Status: Current every day smoker Does the pt drink ETOH?: No Does the pt have substance abuse?: Yes - Immunizations Immunizations are current?: No Immunizations: Other immun not current - POLST Patient has POLST: No PD ED PE NORMAL - Vitals Vital signs reviewed: Yes - General General: Alert and oriented X 3, No acute distress, Well developed/nourished - HEENT HEENT: Moist mucous membranes - Neck Neck: Supple, no meningeal sign - Cardiac Cardiac: RRR - Respiratory Respiratory: No respiratory distress, Clear bilaterally - Abdomen Abdomen: Soft, Non tender, Non distended - Derm Derm: Warm and dry - Extremities Extremities: No calf tenderness / cord - Neuro Neuro: Alert and oriented X 3 Results - Vitals Vitals: Vital Signs - 24 hr 06/16/22 06/16/22 06/16/22 16:50 17:30 18:00 Temperature 37.0 C Heart Rate 69 82 68 Respiratory 20 20 18 Rate Blood Pressure 161/49 H 142/93 H 149/95 H O2 Saturation 100 100 100 06/16/22 06/16/22 06/16/22 18:30 19:00 19:30 Temperature Heart Rate 70 71 70 Respiratory 18 18 18 Rate Blood Pressure 142/65 H 146/85 H 147/70 H O2 Saturation 99 100 99 06/16/22 20:00 Temperature Heart Rate 70 Respiratory 16 Rate Blood Pressure 146/84 H O2 Saturation 99 Oxygen O2 Source Room air - Labs Labs: Laboratory Tests 06/16/22 06/16/22 06/16/22 17:34 17:44 18:08 WBC 11.5 H RBC 5.23 Hgb 14.8 Hct 41.4 L MCV 79.2 L MCH 28.3 MCHC 35.7 RDW 13.6 Plt Count 308 MPV 9.2 Neut # (Auto) 10.2 H Lymph # (Auto) 0.7 L [place] # (Auto) 0.5 Eos # (Auto) 0.0 Baso # (Auto) 0.0 Absolute Nucleated RBC 0.00 Nucleated RBC % 0.0 Sodium Potassium Chloride Carbon Dioxide Anion Gap BUN Creatinine Estimated GFR (MDRD) Glucose Calcium Total Bilirubin AST ALT Alkaline Phosphatase Total Protein Albumin Globulin Albumin/Globulin Ratio Lipase TSH Urine Color YELLOW Urine Clarity CLEAR Urine pH 8.5 H Ur Specific [place] 1.015 Urine Protein TRACE Urine Glucose (UA) NEGATIVE Urine Ketones NEGATIVE Urine Occult Blood NEGATIVE Urine Nitrite NEGATIVE Urine Bilirubin NEGATIVE Urine Urobilinogen 0.2 (NORMAL) Ur Leukocyte Esterase NEGATIVE Ur Microscopic Review NOT INDICATED Urine Culture Comments NOT INDICATED Salicylates Urine Opiates Screen NEGATIVE Ur Oxycodone Screen NEGATIVE Urine Methadone Screen NEGATIVE Ur Propoxyphene Screen NEGATIVE Acetaminophen Ur Barbiturates Screen POSITIVE H Ur Tricyclics Screen NEGATIVE Ur Phencyclidine Scrn NEGATIVE Ur Amphetamine Screen NEGATIVE U Methamphetamines Scrn POSITIVE H U Benzodiazepines Scrn NEGATIVE Urine Cocaine Screen NEGATIVE U Cannabinoids Screen NEGATIVE Ethyl Alcohol SARS-CoV-2 (PCR) NOT DETECTED 06/16/22 06/16/22 18:08 18:08 WBC RBC Hgb Hct MCV MCH MCHC RDW Plt Count MPV Neut # (Auto) Lymph # (Auto) [place] # (Auto) Eos # (Auto) Baso # (Auto) Absolute Nucleated RBC Nucleated RBC % Sodium 136 Potassium 4.2 Chloride 100 L Carbon Dioxide 25 Anion Gap 11.0 BUN 10 Creatinine 0.8 Estimated GFR (MDRD) 133 Glucose 98 Calcium 10.0 Total Bilirubin 0.6 AST 28 ALT 25 Alkaline Phosphatase 79 Total Protein 7.9 Albumin 4.2 Globulin 3.7 Albumin/Globulin Ratio 1.1 Lipase 31 TSH 0.54 Urine Color Urine Clarity Urine pH Ur Specific [place] Urine Protein Urine Glucose (UA) Urine Ketones Urine Occult Blood Urine Nitrite Urine Bilirubin Urine Urobilinogen Ur Leukocyte Esterase Ur Microscopic Review Urine Culture Comments Salicylates < 6.0 Urine Opiates Screen Ur Oxycodone Screen Urine Methadone Screen Ur Propoxyphene Screen Acetaminophen < 10 L Ur Barbiturates Screen Ur Tricyclics Screen Ur Phencyclidine Scrn Ur Amphetamine Screen U Methamphetamines Scrn U Benzodiazepines Scrn Urine Cocaine Screen U Cannabinoids Screen Ethyl Alcohol < 5.0 SARS-CoV-2 (PCR) PD MEDICAL DECISION MAKING - ED course Complexity details: considered differential, d/w patient ED course: Patient was given buprenorphine and Phenergan upon arrival. Vomiting resolved. The patient states that he last used methamphetamine yesterday and last used fentanyl yesterday as well. The patient has been sleeping in the emergency department. Still very drowsy and unable to ambulate on his own. We will allow him to sober in the emergency department. No evidence of trauma. The patient's brother came to the bedside and was updated on the patient's condition. He left his phone number as well. The patient reportedly went to rehab about 6 months ago but has been using drugs again since then. The patient at 1 point tonight stated he may be interested in rehab, this will be reassessed as he bryan. Patient will be signed out to the [facility] emergency department physician. This document was made in part using voice recognition software. While efforts are made to proofread this document, sound alike and grammatical errors may occur. Departure - Departure Clinical Impression: Drug abuse, Methamphetamine abuse, Narcotic withdrawal Condition: Stable
[2022-06-16 17:41] LABS: MUDS CUTOFF CONCENTRATIONS CUTOFF CONC BELOW:
[2022-06-16 17:43] LABS: BILIRUBIN,URINE NEGATIVE (NEGATIVE); GLUCOSE, URINE (UA) NEGATIVE (NEGATIVE); KETONES,URINE (UA) NEGATIVE (NEGATIVE); LEUKOCYTE ESTERASE, URINE NEGATIVE (NEGATIVE); NITRITE,URINE NEGATIVE (NEGATIVE); OCCULT BLOOD,URINE NEGATIVE (NEGATIVE); PH,URINE 8.5 PH (5.0-7.5); PROTEIN,URINE TRACE mg/dL (NEGATIVE); UROBILINOGEN,URINE 0.2 (NORMAL) E.U./dL (NORMAL)
[2022-06-16 17:45] LABS: CLARITY,URINE CLEAR (CLEAR)
[2022-06-16 17:54] LABS: AMPHETAMINE SCREEN,URINE NEGATIVE (NEGATIVE); BARBITURATE SCREEN,UR POSITIVE (NEGATIVE); BENZODIAZEPINES SCREEN, URINE NEGATIVE (NEGATIVE); COCAINE SCREEN URINE NEGATIVE (NEGATIVE); METHADONE SCREEN, URINE NEGATIVE (NEGATIVE); METHAMPHETAMINES SCREEN, URINE POSITIVE (NEGATIVE); OPIATE SCREEN, URINE NEGATIVE (NEGATIVE); OXYCODONE SCREEN, URINE NEGATIVE (NEGATIVE); PROPOXYPHENE SCREEN, URINE NEGATIVE (NEGATIVE); THC CANNABINOID SCREEN, URINE NEGATIVE (NEGATIVE); TRICYCLIC ANTIDEPRESSANT,URINE NEGATIVE (NEGATIVE)
[2022-06-16 18:14] LABS: BASOPHILS % (AUTO) 0.2 %; EOSINOPHILS % (AUTO) 0.2 %; HCT - HEMATOCRIT 41.4 % (42.0-52.0); HGB - HEMOGLOBIN 14.8 g/dL (14.0-18.0); LYMPHOCYTES # (AUTO) 0.7 10^3/uL (1.5-3.5); LYMPHOCYTES % (AUTO) 6.1 %; MEAN CORPUSCULAR HEMOGLOBIN 28.3 pg (27.0-31.0); MEAN CORPUSCULAR HGB CONC 35.7 g/dL (32.0-36.0); MEAN CORPUSCULAR VOLUME 79.2 fL (80.0-94.0); MEAN PLATELET VOLUME 9.2 fL (7.4-11.4); MONOCYTES # (AUTO) 0.5 10^3/uL (0.0-1.0); MONOCYTES % (AUTO) 4.5 %; NEUTROPHILS # (AUTO) 10.2 10^3/uL (1.5-6.6); NEUTROPHILS % (AUTO) 88.7 %; PLT - PLATELET COUNT 308 10^3/uL (130-450); RED BLOOD COUNT 5.23 10^6/uL (4.70-6.10); RED CELL DISTRIBUTION WIDTH 13.6 % (12.0-15.0); WHITE BLOOD COUNT 11.5 x10^3/uL (4.8-10.8)
[2022-06-16 18:33] LABS: ACETAMINOPHEN < 10 ug/mL (10-30); ALBUMIN 4.2 g/dL (3.2-5.5); ALBUMIN/GLOBULIN RATIO 1.1 (1.0-2.2); ALKALINE PHOSPHATASE 79 IU/L (42-121); ALT ALANINE AMINOTRANSFERASE 25 IU/L (10-60); AST ASPARTATE AMINOTRANSFERASE 28 IU/L (10-42); BILIRUBIN,TOTAL 0.6 mg/dL (0.2-1.0); BUN - BLOOD UREA NITROGEN 10 mg/dL (6-20); CARBON DIOXIDE - CO2 25 mmol/L (21-32); CHLORIDE 100 mmol/L (101-111); CREATININE 0.8 mg/dL (0.6-1.2); ETOH - ETHANOL < 5.0 mg/dL; GFR - MDRD 133 (>89); GLUCOSE 98 mg/dL (70-100); LIPASE 31 U/L (22-51); POTASSIUM 4.2 mmol/L (3.5-5.0); SALICYLATE < 6.0 mg/dL; SODIUM 136 mmol/L (135-145); TOTAL PROTEIN 7.9 g/dL (6.7-8.2)
--- NOTE | 2022-06-17 10:16 | ED Physician Documentation ---
ED Addendum - Addendum Addendum: 06/17/22 10:15 Examined the patient and talked with him. He is arousable and able to converse. He is still seems a bit sleepy but certainly coherent. I asked if he would be interested in potential detox program and he said yes and would like to talk with the social service worker to see what might be possible.
[2022-06-17 15:58] VITALS: BP 138/76
== END 2022-06-17 15:58 | disposition home or self-care (01) ==
LOC: EDUNIT# → ED 16:40
DX: F15.13 Other stimulant abuse with withdrawal (principal); F11.23 Opioid dependence with withdrawal; R40.0 Somnolence; F17.200 Nicotine dependence, unspecified, uncomplicated; Z20.822 Contact with and (suspected) exposure to COVID-19
CPT/HCPCS: 36415; 80053; 80306; 80307; 80320; 80329; 81003; 83690; 84443; 85025; 87635; 96372; 99283; 99284; J0592; 81001; 87086